=== PATIENT | female | born 1985 | race Caucasian/White ===

== ENCOUNTER 2016-12-29 18:58 | Emergency (ER) | payer OTHER ==
[2016-12-29 19:10] VITALS: BP 123/56; PULSE 76; TEMP 100.1; BMI 28.3
[2016-12-29] MEDS ORDERED: ACETAMINOPHEN 325 MG TABLET (FP) PO ONE (19:36)
--- NOTE | 2016-12-29 19:36 | PDOC ---
History of Present Illness - General Chief Complaint: Sore Throat Stated Complaint: COLD SYMPTOMS Time Seen by Provider: 12/29/16 19:23 History Source: Patient Exam Limitations: Language Barrier (patient's provide vietnamese translation) - History of Present Illness Initial Comments: CHIEF COMPLAINT: 31 y/o febrile female with no significant PMH c/o headache, fever and sore throat today. HISTORY OF PRESENT ILLNESS: The patient states it hurts to swallow. She has 2 kids that had viruses last weekend. She denies earache, runny nose, cough, n/v/ d, CP, SOB, abd pain and all other symptoms. Vital signs on arrival are notable for temp of 100.1. REVIEW OF SYSTEMS: GENERAL/CONSTITUTIONAL: +fever. No weakness. No weight change. HEAD, EYES, EARS, NOSE AND THROAT: No change in vision. No ear pain or discharge. +fever CARDIOVASCULAR: No chest pain or shortness of breath. RESPIRATORY: No cough, wheezing, or hemoptysis. GASTROINTESTINAL: See history of present illness. GENITOURINARY: No dysuria, frequency, or change in urination. MUSCULOSKELETAL: No joint or muscle swelling or pain. No neck or back pain. SKIN: No rash or easy bruising. NEUROLOGIC: +headache. No vertigo, loss of consciousness, or loss of sensation. PHYSICAL EXAM: GENERAL: The patient is awake, alert, and fully oriented, in no acute distress. She is well appearing, ambulatory, in NAD or obvious discomfort. HEAD: Normal with no signs of trauma. NECK: Tender anterior cervical lymphadenopathy. ENT: Pupils equal, round and reactive to light, extraocular movements intact, sclera anicteric, conjunctiva clear. 2+ erythematous tonsils with exudate on b/ l tonsils. Uvula midline. No soft/hard palate deformities. No petechia. LUNGS: Clear to auscultation bilaterally. Normal excursion. No respiratory distress or use of accessory muscles. CV: RRR, S1/S2, no MRG. Cap refill < 2 sec. ABDOMEN: Soft, non-distended, non-tender even to deep palpation, no hepatomegaly or splenomegaly, no masses. EXTREMITIES: Normal range of motion, no edema. NEUROLOGICAL: Normal speech, normal gait. CN II-XII grossly intact. PSYCH: Normal mood, normal affect. SKIN: Warm, dry, normal turgor, no rashes or lesions noted. Past History - Past Medical History Allergies/Adverse Reactions: Allergies Allergy/AdvReac Type Severity Reaction Status Date / Time No Known Allergies Allergy Verified 12/29/16 19:08 Home Medications: Ambulatory Orders Pnv95/Ferrous Fumarate/FA [ Tablet] 1 tab PO DAILY 11/29/12 Acetaminophen [Tylenol .Regular Strength -] 650 mg PO Q4H PRN #0 tablet Ibuprofen [Motrin -] 600 mg PO Q6H PRN #0 tablet 12/16/12 Hyoscyamine Odt [Levsin Odt -] 0.125 mg PO DAILY PRN #7 tab.rapdis 08/29/16 Ondansetron HCl [Zofran] 4 mg PO BID PRN #10 tablet 08/29/16 Asthma: No Cancer: No Cardiac Disorders: No Diabetes: No HTN: No Seizures: No Thyroid Disease: No - Immunization History Immunization Up to Date: Yes - Psycho/Social/Smoking Cessation Hx Anxiety: No Suicidal Ideation: No Smoking Status: No Smoking History: Never smoked Have you smoked in the past 12 months: No Number of Cigarettes Smoked Daily: 0 Information on smoking cessation initiated: No Hx Alcohol Use: No Drug/Substance Use Hx: No Substance Use Type: None Hx Substance Use Treatment: No *Physical Exam - Vital Signs Last Vital Signs Temp Pulse Resp BP Pulse Ox 100.1 F H 76 18 123/56 98 12/29/16 19:08 12/29/16 19:08 12/29/16 19:08 12/29/16 19:08 12/29/16 19:08 Medical Decision Making - Medical Decision Making A/P: 31 y/o female with strep throat based on Centor score. The patient is currently menstruating and denies . Plan is to give PO tylenol and IM Bicillin. Pt tolerated bicillin well. Instructed her to take tylenol for fever/ pain at home, gargle with warm salt water, drink plenty of fluids and rest until symptoms improve. Instructed her to return to the ER with any worsening or concerning symptoms. The patient verbalizes understanding of all instructions, has no further questions and is awaiting discharge. *DC/Admit/Observation/Transfer Diagnosis at time of Disposition: Strep pharyngitis - Discharge Dispostion Disposition: HOME Condition at time of disposition: Good - Referrals Referrals: STAFF,NOT ON [Primary Care Provider] - - Patient Instructions Printed Discharge Instructions: DI for Strep Throat Additional Instructions: Discharge Instructions: -You were given IM Bicillin in the ER for treatment of strep throat; you do not need any more antibiotics -Please take Tylenol or Motrin for fever/pain -Gargle with warm salt water for throat pain -Drink plenty of fluids and get lots of rest -Return to the ER with any worsening or concerning symptoms Print Language: LATVIAN - Post Discharge Activity Work/School Note: Back to Work
[2016-12-29] MEDS ORDERED: PENICILLIN G BENZATHINE 1,200,000 UNIT/2 ML PFS IM ONE (19:41)
[2016-12-29] MEDS ORDERED: PENICILLIN G BENZATHINE 2,400,000 UNIT/4 ML PFS ONE (19:45)
[2016-12-29] MEDS ORDERED: ACETAMINOPHEN 325 MG TABLET (FP) ONE (19:45)
== END 2016-12-29 20:01 | disposition home or self-care (01) ==
LOC: JERFT 18:58
DX: J02.0 Streptococcal pharyngitis (principal); B95.5 Unspecified streptococcus as the cause of diseases classified elsewhere
CPT/HCPCS: 99281-25

== ENCOUNTER 2017-02-06 23:53 | Emergency (ER) | payer OTHER ==
[2017-02-07 00:37] VITALS: BP 110/67; PULSE 81; TEMP 98.3; BMI 24.7
--- NOTE | 2017-02-07 00:54 | PDOC ---
History of Present Illness - History of Present Illness Initial Comments: 02/07/17 01:39 Patient is a 31 year old female with significant medical hx of IUD insertion who is presenting to the ED with two weeks of abdominal pain and nausea. The patient states that her pain began as colicky, intermittent epigastric pain. However for the past two days, her pain has remained constant in the RLQ, with some nausea but no vomiting. The patients pain is non-radiating and she notes that her pain is severely tender to touch. She also endorses fatigue. Denies any fever, chills, vomiting, diarrhea, dysuria, hematuria, frequency, blood in stool, or black/tarry stools. LNMP: 01/2017 Surgical Hx: c-sections x 2 Allergies: NKDA Socail Hx: Denies tobacco, alcohol or illicit drug use. <Lisa Rivera - Last Filed: 02/07/17 01:39> <Mayda Grissom - Last Filed: 02/08/17 01:50> - General Chief Complaint: Pain, Acute Stated Complaint: PAIN, ACUTE Time Seen by Provider: 02/07/17 00:32 Past History <Lisa Rivera - Last Filed: 02/07/17 01:39> - Past Medical History Asthma: No Cancer: No Cardiac Disorders: No Diabetes: No HTN: No Seizures: No Thyroid Disease: No - Immunization History Immunization Up to Date: Yes - Psycho/Social/Smoking Cessation Hx Anxiety: No Suicidal Ideation: No Smoking Status: No Smoking History: Never smoked Have you smoked in the past 12 months: No Number of Cigarettes Smoked Daily: 0 Hx Alcohol Use: No Drug/Substance Use Hx: No Substance Use Type: None Hx Substance Use Treatment: No <Mayda Grissom - Last Filed: 02/08/17 01:50> - Past Medical History Allergies/Adverse Reactions: Allergies Allergy/AdvReac Type Severity Reaction Status Date / Time No Known Allergies Allergy Verified 02/07/17 00:37 Home Medications: Ambulatory Orders NK [No Known Home Medication] 02/07/17 Review of Systems - Review of Systems Comments:: 02/07/17 01:39 CONSTITUTIONAL: Present: fatigue Absent: fever, chills, diaphoresis, loss of appetite HEENT: Absent: rhinorrhea, nasal congestion, throat pain, throat swelling, difficulty swallowing, mouth swelling, ear pain, eye pain, visual changes CARDIOVASCULAR: Absent: chest pain, syncope, palpitations, irregular heart rate, lightheadedness , peripheral edema RESPIRATORY: Absent: cough, shortness of breath, dyspnea with exertion, orthopnea, wheezing, stridor, hemoptysis GASTROINTESTINAL: Present: epigastric and RLQ pain, nausea Absent: abdominal distension, vomiting, diarrhea, constipation, melena, hematochezia GENITOURINARY: Absent: dysuria, frequency, urgency, hesitancy, hematuria, flank pain, genital pain MUSCULOSKELETAL: Absent: myalgia, arthralgia, joint swelling SKIN: Absent: rash, itching, pallor HEMATOLOGIC/IMMUNOLOGIC: Absent: easy bleeding, easy bruising, lymphadenopathy, frequent infections ENDOCRINE: Absent: unexplained weight gain, unexplained weight loss, heat intolerance, cold intolerance NEUROLOGIC: Absent: headache, focal weakness or paresthesia, dizziness, unsteady gait, seizure, mental status changes, bladder or bowel incontinence. PSYCHIATRIC: Absent: anxiety, depression, suicidal or homicidal ideation, hallucinations <Lisa Rivera - Last Filed: 02/07/17 01:39> *Physical Exam - Vital Signs Last Vital Signs Temp Pulse Resp BP Pulse Ox 98.3 F 81 16 110/67 100 02/07/17 00:36 02/07/17 00:36 02/07/17 00:36 02/07/17 00:36 02/07/17 00:36 - Physical Exam Comments: 02/07/17 01:40 GENERAL: Well developed, well nourished. Awake and alert. No acute distress. HEENT: Normocephalic, atraumatic. PERRLA, EOMI. No conjunctival pallor. Sclera are non- icteric. Moist mucous membranes. Oropharynx is clear. NECK: Supple. Full ROM. No JVD. Carotid pulses 2+ and symmetric, without bruits. No thyromegaly. No lymphadenopathy. CARDIOVASCULAR: Regular rate and rhythm. No murmurs, rubs, or gallops. Distal pulses are 2+ and symmetric. PULMONARY: No evidence of respiratory distress. Lungs clear to auscultation bilaterally. No wheezing, rales or rhonchi. ABDOMINAL: Soft. RLQ tenderness with some guarding. Non-distended. No organomegaly. Normoactive bowel sounds. MUSCULOSKELETAL: Normal range of motion at all joints. No bony deformities or tenderness. No CVA tenderness. EXTREMITIES: No cyanosis. No clubbing. No edema. No calf tenderness. SKIN: Warm and dry. Normal capillary refill. No rashes. No jaundice. NEUROLOGICAL: Alert, awake, appropriate. Cranial nerves 2-12 intact. Normal speech. PSYCHIATRIC: Cooperative. Good eye contact. Appropriate mood and affect. <Lisa Rivera - Last Filed: 02/07/17 01:39> - Vital Signs Last Vital Signs Temp Pulse Resp BP Pulse Ox 98.3 F 81 16 110/67 100 02/07/17 00:36 02/07/17 00:36 02/07/17 00:36 02/07/17 00:36 02/07/17 00:36 <Mayda Grissom - Last Filed: 02/08/17 01:50> ED Treatment Course - LABORATORY CBC & Chemistry Diagram: 02/07/17 01:16 02/07/17 01:16 <Lisa Rivera - Last Filed: 02/07/17 01:39> - LABORATORY CBC & Chemistry Diagram: 02/07/17 01:16 02/07/17 01:16 <Mayda Grissom - Last Filed: 02/08/17 01:50> *DC/Admit/Observation/Transfer - Attestations Scribe Attestion: 02/07/17 01:41 Documentation prepared by Lisa Rivera, acting as medical delivery technician for Mayda Grissom MD. <Lisa Rivera - Last Filed: 02/07/17 01:39> <Mayda Grissom - Last Filed: 02/08/17 01:50> Diagnosis at time of Disposition: Abdominal pain - Discharge Dispostion Disposition: HOME Condition at time of disposition: Improved - Patient Instructions Printed Discharge Instructions: DI for Abdominal Pain-Adult Additional Instructions: Your CT scan of the abdomen and pelvis and ultrasound shows fibroids. Please take 600 mg ibuprofen every 6 hours as needed for pain. Please follow up with your doctor. Print Language: GUAMANIAN
[2017-02-07] MEDS ORDERED: ONDANSETRON 4 MG/2 ML VIAL IVPUSH ONE (01:13)
[2017-02-07] MEDS ORDERED: SODIUM CHLORIDE 1,000 ML IV STA (01:13)
[2017-02-07 01:28] LABS: BASOPHIL 0.7 % (0-2.0); EOSINOPHIL 0.8 % (0-4.5); MCH 30.7 pg (25.7-33.7); MCHC 32.4 g/dl (32.0-36.0); MEAN CELL VOLUME 94.9 fl (80-96); MEAN PLT VOLUME 8.8 fl (7.5-11.1); PLATELET COUNT 255 K/MM3 (134-434); RDW 12.9 % (11.6-15.6); WHITE BLOOD COUNT 12.3 K/mm3 (4.0-10.0)
[2017-02-07] MEDS ORDERED: ONDANSETRON 4 MG/2 ML VIAL ONE (01:30)
[2017-02-07 01:49] LABS: ALBUMIN 3.6 g/dl (3.4-5.0); ANION GAP 7 (8-16); BILIRUBIN,TOTAL 0.2 mg/dL (0.2-1.0); CALCIUM 9.6 mg/dL (8.5-10.1); CO2 28 mmol/L (21-32); CREATININE 0.6 mg/dL (0.55-1.02); GLUCOSE,RANDOM 88 mg/dL (74-106); SGOT/AST 17 U/L (15-37); SGPT/ALT 32 U/L (12-78)
[2017-02-07 01:50] LABS: ALK PHOS 56 U/L (45-117)
[2017-02-07 02:11] LABS: URINE APPEARANCE CLEAR; URINE BILIRUBIN NEGATIVE (NEGATIVE); URINE BLOOD NEGATIVE (NEGATIVE); URINE COLOR STRAW; URINE GLUCOSE (UA) NEGATIVE (NEGATIVE); URINE KETONE NEGATIVE (NEGATIVE); URINE NITRITE NEGATIVE (NEGATIVE); URINE PROTEIN NEGATIVE (NEGATIVE); URINE UROBILINOGEN NEGATIVE E.U./dl (0.2-1.0)
[2017-02-07 02:14] LABS: URINE LEUK ESTERASE 1+ (NEGATIVE)
[2017-02-07 02:20] LABS: URINE BACTERIA RARE /hpf (NONE SEEN); URINE MUCUS RARE; URINE RBC <1 /hpf (0-3); URINE WBC 8 /hpf (3-5)
--- NOTE | 2017-02-07 04:13 | PDOC ---
*Physical Exam - Vital Signs Last Vital Signs Temp Pulse Resp BP Pulse Ox 98.3 F 81 16 110/67 100 02/07/17 00:36 02/07/17 00:36 02/07/17 00:36 02/07/17 00:36 02/07/17 00:36 ED Treatment Course - LABORATORY CBC & Chemistry Diagram: 02/07/17 01:16 02/07/17 01:16 - ADDITIONAL ORDERS Additional order review: Laboratory Results 02/07/17 02/07/17 02/07/17 02:03 01:16 01:16 Sodium 141 Potassium 4.3 Chloride 106 Carbon Dioxide 28 Anion Gap 7 L BUN 11 D Creatinine 0.6 Creat Clearance w eGFR > 60 Random Glucose 88 Calcium 9.6 Total Bilirubin 0.2 D AST 17 ALT 32 Alkaline Phosphatase 56 Total Protein 7.0 Albumin 3.6 Lipase 234 Serum , Qual Negative Urine Color Straw Urine Appearance Clear Urine pH 7.0 D Urine Protein Negative Urine Glucose (UA) Negative Urine Ketones Negative Urine Blood Negative Urine Nitrite Negative Urine Bilirubin Negative Urine Urobilinogen Negative Ur Leukocyte Esterase 1+ H Urine RBC <1 Urine WBC 8 Ur Epithelial Cells Few Urine Bacteria Rare Urine Mucus Rare 02/07/17 01:16 RBC 3.93 MCV 94.9 MCHC 32.4 RDW 12.9 MPV 8.8 Neutrophils % 66.0 D Lymphocytes % 24.8 D Monocytes % 7.7 D Eosinophils % 0.8 D Basophils % 0.7 - RADIOLOGY Radiology Studies Ordered: Category Date Time Status ABDOMEN & PELVIS CT WITH CONTR [CT] Stat CT Scan 02/07/17 02:28 Taken - Medications Given in the ED: ED Medications Discontinued Medications Generic Name Dose Route Start Last Admin Trade Name Freq PRN Reason Stop Dose Admin Sodium Chloride 1,000 mls @ 1,000 mls/hr 02/07/17 01:13 02/07/17 01:50 Normal Saline - IV 02/07/17 02:12 1,000 mls/hr ASDIR STA Administration Ondansetron HCl 4 mg 02/07/17 01:13 02/07/17 01:50 Zofran Injection IVPUSH 02/07/17 01:14 4 mg ONCE ONE Administration Medical Decision Making - Medical Decision Making 02/07/17 04:09 Sign-out received from outgoing Emergency Physician Dr. Grissom Pt interviewed and examined Ancillary studies reviewed Case discussed in detail with oncoming Emergency Physician including history, physical exam and ancillary studies. Vital Signs Temp Pulse Resp BP Pulse Ox 98.3 F 81 16 110/67 100 02/07/17 00:36 02/07/17 00:36 02/07/17 00:36 02/07/17 00:36 02/07/17 00:36 CBC, BMP 02/07/17 01:16 02/07/17 01:16 CMP Sodium 141 mmol/L (136-145) 02/07/17 01:16 Potassium 4.3 mmol/L (3.5-5.1) 02/07/17 01:16 Chloride 106 mmol/L (98-107) 02/07/17 01:16 Carbon Dioxide 28 mmol/L (21-32) 02/07/17 01:16 Anion Gap 7 (8-16) L 02/07/17 01:16 BUN 11 mg/dL (7-18) D 02/07/17 01:16 Creatinine 0.6 mg/dL (0.55-1.02) 02/07/17 01:16 Creat Clearance w eGFR > 60 (>60) 02/07/17 01:16 Random Glucose 88 mg/dL (74-106) 02/07/17 01:16 Calcium 9.6 mg/dL (8.5-10.1) 02/07/17 01:16 Total Bilirubin 0.2 mg/dL (0.2-1.0) D 02/07/17 01:16 AST 17 U/L (15-37) 02/07/17 01:16 ALT 32 U/L (12-78) 02/07/17 01:16 Alkaline Phosphatase 56 U/L (45-117) 02/07/17 01:16 Total Protein 7.0 g/dl (6.4-8.2) 02/07/17 01:16 Albumin 3.6 g/dl (3.4-5.0) 02/07/17 01:16 Lipase 234 U/L (73-393) 02/07/17 01:16 Serum , Qual Negative 02/07/17 01:16 Urine Test Results Urine Color Straw 02/07/17 02:03 Urine Appearance Clear 02/07/17 02:03 Urine pH 7.0 (5.0-8.0) D 02/07/17 02:03 Urine Protein Negative (NEGATIVE) 02/07/17 02:03 Urine Glucose (UA) Negative (NEGATIVE) 02/07/17 02:03 Urine Ketones Negative (NEGATIVE) 02/07/17 02:03 Urine Blood Negative (NEGATIVE) 02/07/17 02:03 Urine Nitrite Negative (NEGATIVE) 02/07/17 02:03 Urine Bilirubin Negative (NEGATIVE) 02/07/17 02:03 Ur Leukocyte Esterase 1+ (NEGATIVE) H 02/07/17 02:03 Urine RBC <1 /hpf (0-3) 02/07/17 02:03 Urine WBC 8 /hpf (3-5) 02/07/17 02:03 Ur Epithelial Cells Few /hpf (FEW) 02/07/17 02:03 Urine Bacteria Rare /hpf (NONE SEEN) 02/07/17 02:03 Urine Mucus Rare 02/07/17 02:03 Labs reviewed. Ultrasound and CT imaging. No acute findings. The patient was reassessed and she reports feeling well and would like to go home. Her abdominal pain improved. Pt would like to go home. *DC/Admit/Observation/Transfer Diagnosis at time of Disposition: Abdominal pain Qualifiers: Abdominal location: unspecified location Qualified Code(s): R10.9 - Unspecified abdominal pain - Discharge Dispostion Disposition: HOME Condition at time of disposition: Improved Admit: No - Patient Instructions Printed Discharge Instructions: DI for Abdominal Pain-Adult Additional Instructions: Your CT scan of the abdomen and pelvis and ultrasound shows fibroids. Please take 600 mg ibuprofen every 6 hours as needed for pain. Please follow up with your doctor. Print Language: SERBIAN
== END 2017-02-07 04:26 | disposition home or self-care (01) ==
LOC: JER 23:53
PROC: 3E033GC Introduction of Other Therapeutic Substance into Peripheral Vein, Percutaneous Approach (ICD-10-PCS; principal; 2017-02-06)
DX: R10.9 Unspecified abdominal pain (principal)
CPT/HCPCS: 36415; 74177-TC; 76830-TC; 80053; 81003; 81015; 83690; 84703; 85025; 96374; 99282-25

== ENCOUNTER 2017-03-15 09:36 | Emergency (ER) | payer OTHER ==
[2017-03-15 09:41] VITALS: BP 109/71; PULSE 78; TEMP 98.3; BMI 26.4
--- NOTE | 2017-03-15 10:27 | PDOC ---
History of Present Illness - General Chief Complaint: Pain Stated Complaint: BACK/SIDE PAIN Time Seen by Provider: 03/15/17 10:14 History Source: Patient Exam Limitations: No Limitations - History of Present Illness Initial Comments: 03/15/17 10:26 Patient is a 31-year-old female, history of kidney stones presents emergency department for evaluation of bilateral lower back pain. Patient states that she had similar pain when she had the kidney stones. Patient denies any urinary symptoms, pain started last evening when she was sitting watching a movie. Denies any trauma, denies lifting anything heavy however has a 4 and a 2-year- old. One episode of diarrhea today, no nausea vomiting, no fever. No hematuria, no dysuria. 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 No weakness. No weight change. HEAD, EYES, EARS, NOSE AND THROAT: No change in vision. No ear pain or discharge. No sore throat. CARDIOVASCULAR: No chest pain or shortness of breath. RESPIRATORY: No cough, wheezing, or hemoptysis. GASTROINTESTINAL: No nausea, vomiting, diarrhea or constipation. No rectal bleeding. GENITOURINARY: No dysuria, frequency, or change in urination. MUSCULOSKELETAL: No joint or muscle swelling or pain. No neck pain, lower back pain. SKIN: No rash or easy bruising. NEUROLOGIC: No headache, vertigo, loss of consciousness, or loss of sensation. Physical Exam: GENERAL: The patient is awake, alert, and fully oriented, in no acute distress. HEAD: Normal with no signs of trauma. EYES: Pupils equal, round and reactive to light, extraocular movements intact, sclera anicteric, conjunctiva clear. ENT: Ears normal, nares patent, oropharynx clear without exudates. Moist mucous membranes. No uvula deviation NECK: Normal range of motion, supple without lymphadenopathy, JVD, or masses. LUNGS: Breath sounds equal, clear to auscultation bilaterally. No wheezes, and no crackles. HEART: Regular rate and rhythm, normal S1 and S2 without murmur, rub or gallop. ABDOMEN: Soft, nontender, normoactive bowel sounds. No guarding, no rebound. No masses. No bruising or abrasions MUSCULOSKELETAL: Normal range of motion, no edema. No clubbing or cyanosis. No cords, erythema, or tenderness. No CVA Tenderness with fist palpation. No spinal point tenderness. SKIN: Warm, Dry, normal turgor, no rashes or lesions noted. No rash 03/15/17 10:30 Past History - Past Medical History Allergies/Adverse Reactions: Allergies Allergy/AdvReac Type Severity Reaction Status Date / Time No Known Allergies Allergy Verified 03/15/17 09:40 Home Medications: Ambulatory Orders Cyclobenzaprine HCl [Flexeril 10 mg] 10 mg PO BID PRN #15 tablet 03/15/17 Ibuprofen [Motrin -] 600 mg PO QID #28 tablet 03/15/17 Asthma: No Cancer: No Cardiac Disorders: No Diabetes: No HTN: No Seizures: No Thyroid Disease: No - Immunization History Immunization Up to Date: Yes - Psycho/Social/Smoking Cessation Hx Anxiety: No Suicidal Ideation: No Smoking Status: No Smoking History: Never smoked Have you smoked in the past 12 months: No Number of Cigarettes Smoked Daily: 0 Hx Alcohol Use: Yes (SOCIAL) Drug/Substance Use Hx: No Substance Use Type: None Hx Substance Use Treatment: No *Physical Exam - Vital Signs Last Vital Signs Temp Pulse Resp BP Pulse Ox 98.3 F 78 20 109/71 98 03/15/17 09:36 03/15/17 09:36 03/15/17 09:36 03/15/17 09:36 03/15/17 09:36 Medical Decision Making - Medical Decision Making 03/15/17 10:36 A/P: Patient with nontraumatic bilateral lateral lower back pain. Plan: Urinalysis, urine culture, urine once urine is received we will give Toradol 60 mg IM, rule out kidney stones versus back pain. Versus UTI. 03/15/17 11:57 Laboratory Tests 03/15/17 10:32 Urine Color Straw Urine Appearance Clear Urine pH 7.0 Ur Specific [place] Pending Urine Protein Negative Urine Glucose (UA) Negative Urine Ketones Negative Urine Blood Negative Urine Nitrite Negative Urine Bilirubin Negative Urine Urobilinogen Negative Ur Leukocyte Esterase Negative Urine HCG, Qual Negative Urine is negative for UTI, no blood, no clinical evidence of kidney stone. Patient with low back pain. Toradol given with good result. Patient discharged on Motrin and flexaril. Follow up with ortho as needed if pain persists. I discussed the physical exam findings, ancillary test results and final diagnoses with the patient. I answered all of the patient's questions. The patient was satisfied with the care received and felt comfortable with the discharge plan and treatment plan. The patient will call hours to arrange follow-up and will return to the Emergency Department with any new, persistent or worsening symptoms. *DC/Admit/Observation/Transfer Diagnosis at time of Disposition: Low back pain Qualifiers: Chronicity: acute Back pain laterality: bilateral Sciatica presence: without sciatica Qualified Code(s): M54.5 - Low back pain - Discharge Dispostion Disposition: HOME Condition at time of disposition: Good Admit: No - Prescriptions Prescriptions: Cyclobenzaprine HCl [Flexeril 10 mg] 10 mg PO BID PRN #15 tablet PRN Reason: spasm Ibuprofen [Motrin -] 600 mg PO QID #28 tablet - Referrals Referrals: Jose Alfredo Toribio MD [Staff Physician] - - Patient Instructions Printed Discharge Instructions: Low Back Pain Additional Instructions: 1. Please return to the emergency department with any numbness, tingling, weakness, numbness or tingling to groin or legs, or loss of bowel or bladder function. 2. Use pain medication as ordered. 3. Please is to followup in the office of Dr. Toribio for evaluation within a week if no improvement. 4. Ice or heat 5. Refrain from lifting anything above 10 pounds, until pain resolved. - Post Discharge Activity Work/School Note: Back to Work
[2017-03-15 10:54] LABS: URINE APPEARANCE CLEAR; URINE BILIRUBIN NEGATIVE (NEGATIVE); URINE BLOOD NEGATIVE (NEGATIVE); URINE COLOR STRAW; URINE GLUCOSE (UA) NEGATIVE (NEGATIVE); URINE KETONE NEGATIVE (NEGATIVE); URINE LEUK ESTERASE NEGATIVE (NEGATIVE); URINE NITRITE NEGATIVE (NEGATIVE); URINE PROTEIN NEGATIVE (NEGATIVE); URINE UROBILINOGEN NEGATIVE E.U./dl (0.2-1.0)
[2017-03-15] MEDS ORDERED: KETOROLAC TROMETHAMINE 60 MG/2 ML VIAL IM ONE (11:02)
[2017-03-15] MEDS ORDERED: KETOROLAC TROMETHAMINE 60 MG/2 ML VIAL ONE (11:04)
== END 2017-03-15 11:39 | disposition home or self-care (01) ==
LOC: JERFT 09:36
PROC: 3E0233Z Introduction of Anti-inflammatory into Muscle, Percutaneous Approach (ICD-10-PCS; principal; 2017-03-15)
DX: M54.5 Low back pain (principal)
CPT/HCPCS: 81003; 84703; 87086; 96372; 99281-25

== ENCOUNTER 2018-05-24 10:19 | Emergency (ER) | payer OTHER ==
[2018-05-24 10:24] VITALS: BP 128/64; PULSE 59; TEMP 98.7; BMI 28.3
--- NOTE | 2018-05-24 10:37 | PDOC ---
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 Pt states her patient is HIV positive and was stuck by her insulin syringe , unsure if the syringe was used, however pt is wanting to start the medications. no PMHX tetanus is UTD. Timing: this morning Severity: mild Exposed Location: Right: Finger(s) (thumb) Assessing Significant Risk PEP: Yes Percutaneous Past History - Past Medical History Allergies/Adverse Reactions: Allergies Allergy/AdvReac Type Severity Reaction Status Date / Time No Known Allergies Allergy Verified 05/24/18 10:21 Home Medications: Ambulatory Orders Emtricitabine/Tenofovir (Tdf) [Truvada 200 mg-300 mg Tablet] 1 each PO DAILY # 28 tablet 05/24/18 Raltegravir [Isentress] 400 mg PO BID #46 tab 05/24/18 Asthma: No Cancer: No Cardiac Disorders: No COPD: No Diabetes: No HTN: No Seizures: No Thyroid Disease: No - Immunization History Immunization Up to Date: Yes - Suicide/Smoking/Psychosocial Hx Smoking Status: No Smoking History: Never smoked Have you smoked in the past 12 months: No Number of Cigarettes Smoked Daily: 0 Hx Alcohol Use: Yes (SOCIAL) Drug/Substance Use Hx: No Substance Use Type: None Hx Substance Use Treatment: No Review of Systems - Review of Systems Able to Perform ROS?: Yes Is the patient limited Welsh proficient: No Constitutional: No: Symptoms Reported Integumentary: Yes: Symptoms Reported *Physical Exam - Vital Signs Last Vital Signs Temp Pulse Resp BP Pulse Ox 98.7 F 59 L 16 128/64 100 05/24/18 10:23 05/24/18 10:23 05/24/18 10:23 05/24/18 10:23 05/24/18 10:23 - Physical Exam General Appearance: Yes: Nourished, Appropriately Dressed HEENT: positive: EOMI, NAWAF Neck: positive: Supple Respiratory/Chest: positive: Lungs Clear, Normal Breath Sounds Cardiovascular: positive: Regular Rhythm, Regular Rate Integumentary: positive: Normal Color, Dry, Warm, Other (right thumb tip no evidence of trauma , skin appears intact ) Neurologic: positive: Fully Oriented, Alert, Normal Mood/Affect, Normal Response , Motor Strength 5/5 Post Exposure - ED Protocol - Exposure Treatment Washing/Decontamination: Soap/Water Source Patient HIV Status:: HIV Positive Is PEP indicated?: Yes Prophylaxis for HIV discussed?: Yes Prophylaxis given?: Yes Prophylaxis refused?: No - Referrals Other Post Exposure pt. referral to PCP: Yes (Dr. Haider) *DC/Admit/Observation/Transfer Diagnosis at time of Disposition: Needle stick injury of finger of right hand Qualifiers: Encounter type: initial encounter Qualified Code(s): S61.239A - Puncture wound without foreign body of unspecified finger without damage to nail, initial encounter; W27.3XXA - Contact with needle (sewing), initial encounter - Discharge Dispostion Disposition: HOME Condition at time of disposition: Good - Prescriptions Prescriptions: Emtricitabine/Tenofovir (Tdf) [Truvada 200 mg-300 mg Tablet] 1 each PO DAILY # 28 tablet Raltegravir [Isentress] 400 mg PO BID #46 tab - Referrals Referrals: Shahram Haider MD [Staff Physician] - - Patient Instructions Additional Instructions: follow up with in 2 weeks call today to set up appointment take the medication as directed wash the area of needle stick daily with soap and water seguimiento con en 2 semanas llame hoy para programar horace nivia parth la medicacin segn las indicaciones ced el tmamy de la aguja con agua y jabn diariamente Print Language: POLISH - Post Discharge Activity Forms/Work/School Notes: Back to Work
[2018-05-24 11:09] LABS: EOS % 0.5 % (0-4.5); HEMATOCRIT 40.1 % (32.4-45.2); HEMOGLOBIN 13.6 GM/dL (10.7-15.3); MCH 31.9 pg (25.7-33.7); MEAN CELL VOLUME 93.7 fl (80-96); MEAN PLT VOLUME 8.5 fl (7.5-11.1); MONO % 6.8 % (3.8-10.2); NEUT % 64.7 % (42.8-82.8); PLATELET COUNT 297 K/MM3 (134-434); RBC 4.28 M/mm3 (3.60-5.2); RDW 12.9 % (11.6-15.6)
[2018-05-24 12:19] LABS: ALBUMIN 3.9 g/dl (3.4-5.0); ALK PHOS 48 U/L (45-117); ANION GAP 3 MMOL/L (8-16); BILIRUBIN,TOTAL 0.4 mg/dL (0.2-1); BLOOD UREA NITROGEN 9 mg/dL (7-18); CALCIUM 10.2 mg/dL (8.5-10.1); CHLORIDE 104 mmol/L (98-107); CHOLESTEROL 196 mg/dL (50-200); CO2 28 mmol/L (21-32); CREATININE 0.6 mg/dL (0.55-1.3); GAMMA GLUTAMYL TRANSPEPTIDASE 28 U/L (5-85); GLUCOSE,RANDOM 79 mg/dL (74-106); LDH 180 U/L (84-246); PHOSPHOROUS 2.8 mg/dL (2.5-4.9); POTASSIUM 4.3 mmol/L (3.5-5.1); SGOT/AST 11 U/L (15-37); SGPT/ALT 23 U/L (13-61); SODIUM 136 mmol/L (136-145); TOT PROT 7.7 g/dl (6.4-8.2); TRIGLYCERIDES 108 mg/dL (0-150)
[2018-05-26 00:08] LABS: HBsAG SCREEN Negative (Negative)
== END 2018-05-24 12:48 | disposition home or self-care (01) ==
LOC: JERFT 10:19
DX: S61.239A Puncture wound without foreign body of unspecified finger without damage to nail, initial encounter (principal); W46.0XXA Contact with hypodermic needle, initial encounter; Y93.9 Activity, unspecified; Y92.9 Unspecified place or not applicable
CPT/HCPCS: 36415; 80053; 82465; 82977; 83615; 84100; 84478; 84703; 85025; 86317; 86706; 86803; 87070; 87340; 87389; 87430; 99281-25

== ENCOUNTER 2018-09-17 10:24 | Emergency (ER) | payer OTHER ==
[2018-09-17 11:14] VITALS: BP 114/67; PULSE 85; TEMP 98.5; BMI 24.2
[2018-09-17] MEDS ORDERED: guaiFENesin/D-METHORPHAN HB 10 ML UNIT-DOSE CUPS PO ONE (11:54)
--- NOTE | 2018-09-17 11:56 | PDOC ---
History of Present Illness - General Chief Complaint: Oral Ulcers Stated Complaint: SORE THROAT Time Seen by Provider: 09/17/18 11:26 History Source: Patient Exam Limitations: No Limitations - History of Present Illness Initial Comments: 09/17/18 11:53 32 year old female with no significant medical or surgical history presents with complaints of bodyaches since yesterday. 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 States she feels as if glands are swollen and reports dry intermittent cough x 1 week 09/17/18 11:54 Timing/Duration: 24 hours Severity: mild Modifying Factors: improves with: medication Associated Symptoms: reports: cough, malaise Aspirin Received prior to arrival: Yes: no aspirin today Beta Blair Contraindications(Core Measure): No: Not Prescribed Past History - Travel Traveled outside of the country in the last 30 days: No - Past Medical History Allergies/Adverse Reactions: Allergies Allergy/AdvReac Type Severity Reaction Status Date / Time No Known Allergies Allergy Verified 09/17/18 11:11 Home Medications: Ambulatory Orders Emtricitabine/Tenofovir (Tdf) [Truvada 200 mg-300 mg Tablet] 1 each PO DAILY # 28 tablet 05/24/18 Raltegravir [Isentress] 400 mg PO BID #46 tab 05/24/18 Guaifenesin Dm [Robitussin Dm -] 10 ml PO Q8H #15 cup 09/17/18 Asthma: No Cancer: No Cardiac Disorders: No COPD: No Diabetes: No HTN: No Seizures: No Thyroid Disease: No - Immunization History Immunization Up to Date: Yes - Suicide/Smoking/Psychosocial Hx Smoking Status: No Smoking History: Never smoked Have you smoked in the past 12 months: No Number of Cigarettes Smoked Daily: 0 Hx Alcohol Use: Yes (SOCIAL) Drug/Substance Use Hx: No Substance Use Type: None Hx Substance Use Treatment: No Review of Systems - Review of Systems Able to Perform ROS?: Yes Is the patient limited Armenian proficient: No Constitutional: No: Chills, Fever HEENTM: No: Nose Congestion, Throat Swelling Respiratory: Yes: Cough. No: Shortness of Breath, Productive cough Cardiac (ROS): No: Chest Pain, Lightheadedness, Palpitations ABD/GI: No: Abdominal Distended, Poor Appetite : No: Burning Musculoskeletal: No: Back Pain, Muscle Weakness Integumentary: No: Bruising, Erythema Neurological: No: Headache, Tingling, Tremors *Physical Exam - Vital Signs Last Vital Signs Temp Pulse Resp BP Pulse Ox 98.5 F 85 18 114/67 100 09/17/18 11:11 09/17/18 11:11 09/17/18 11:11 09/17/18 11:11 09/17/18 11:11 - Physical Exam General Appearance: Yes: Nourished, Appropriately Dressed HEENT: positive: EOMI, NAWAF, Pharynx Normal Neck: positive: Supple, Lymphadenopathy (R). negative: Lymphadenopathy (L) Respiratory/Chest: positive: Lungs Clear, Normal Breath Sounds. 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 Plan urine robitussin DM D/c home *DC/Admit/Observation/Transfer Diagnosis at time of Disposition: Malaise, Cough - Discharge Dispostion Disposition: HOME Condition at time of disposition: Good - Prescriptions Prescriptions: Guaifenesin Dm [Robitussin Dm -] 10 ml PO Q8H #15 cup - Referrals Referrals: Madisyn Youssef MD [Primary Care Provider] - - Patient Instructions Printed Discharge Instructions: Cough Additional Instructions: Please rest Drink plenty fluids May take ibuprofen or tylenol for bodyaches or fever follow up with primary physician - Post Discharge Activity Forms/Work/School Notes: Back to Work
[2018-09-17] MEDS ORDERED: guaiFENesin/D-METHORPHAN HB 10 ML UNIT-DOSE CUPS ONE (11:57)
== END 2018-09-17 12:21 | disposition home or self-care (01) ==
LOC: JERFT 10:24
DX: R05 Cough (principal)
CPT/HCPCS: 84703; 99281-25

== ENCOUNTER 2018-10-06 11:34 | Emergency (ER) | payer OTHER ==
[2018-10-06 11:39] VITALS: BP 105/51; PULSE 85; TEMP 98.5; BMI 23.3
--- NOTE | 2018-10-06 12:01 | PDOC ---
History of Present Illness - General Chief Complaint: Urinary Problem Stated Complaint: PAIN Time Seen by Provider: 10/06/18 11:47 History Source: Patient Exam Limitations: Language Barrier Past History - Past Medical History Allergies/Adverse Reactions: Allergies Allergy/AdvReac Type Severity Reaction Status Date / Time No Known Allergies Allergy Verified 10/06/18 11:51 Home Medications: Ambulatory Orders Cephalexin Monohydrate [Keflex -] 500 mg PO BID #14 capsule 10/06/18 Asthma: No Cancer: No Cardiac Disorders: No COPD: No Diabetes: No HTN: No Seizures: No Thyroid Disease: No - Immunization History Immunization Up to Date: Yes - Suicide/Smoking/Psychosocial Hx Smoking Status: No Smoking History: Never smoked Have you smoked in the past 12 months: No Number of Cigarettes Smoked Daily: 0 Hx Alcohol Use: Yes (SOCIAL) Drug/Substance Use Hx: No Substance Use Type: None Hx Substance Use Treatment: No *Physical Exam - Vital Signs Last Vital Signs Temp Pulse Resp BP Pulse Ox 98.5 F 85 18 105/51 L 100 10/06/18 11:34 10/06/18 11:34 10/06/18 11:34 10/06/18 11:34 10/06/18 11:34 - Physical Exam General Appearance: No: Apparent Distress Respiratory/Chest: positive: Lungs Clear, Normal Breath Sounds. negative: Respiratory Distress Cardiovascular: positive: Regular Rhythm, Regular Rate, S1, S2. negative: Murmur Gastrointestinal/Abdominal: positive: Normal Bowel Sounds, Tender (mild suprapubic tenderness), Soft. negative: Distended, Guarding, Rebound Musculoskeletal: negative: CVA Tenderness Integumentary: positive: Normal Color Neurologic: positive: Alert, Normal Mood/Affect Moderate Sedation - Procedure Monitoring Vital Signs: Procedure Monitoring Vital Signs Temperature 98.5 F 10/06/18 11:34 Pulse Rate 85 10/06/18 11:34 Respiratory Rate 18 10/06/18 11:34 Blood Pressure 105/51 L 10/06/18 11:34 O2 Sat by Pulse Oximetry (%) 100 10/06/18 11:34 Medical Decision Making - Medical Decision Making 32 y/o F with no sig pmh presents with dysuria since 5 days ago, along with increased urinary frequency and urgency. Also has been noting strong odor to her urine. Denies fever, chills, sob, cp, abd pain, n/v, hematuria, unusual vaginal discharge Likely UTI UA, UCx, UCG 10/06/18 11:57 UA with 3+ leuks and significant pyuria Will start on Keflex 10/06/18 12:36 *DC/Admit/Observation/Transfer Diagnosis at time of Disposition: UTI (urinary tract infection) Qualifiers: Urinary tract infection type: acute cystitis Hematuria presence: without hematuria Qualified Code(s): N30.00 - Acute cystitis without hematuria - Discharge Dispostion Disposition: HOME Condition at time of disposition: Stable Decision to Admit order: No - Prescriptions Prescriptions: Cephalexin Monohydrate [Keflex -] 500 mg PO BID #14 capsule - Referrals Referrals: ON STAFF,NOT [Primary Care Provider] - - Patient Instructions Printed Discharge Instructions: DI for Urinary Tract Infection (UTI) Additional Instructions: Thank you for choosing [facility]. It was a pleasure taking care of you. You were found to have urine infection Take the prescribed antibiotic as indicated Be sure to drink plenty of water - at least 2 liters a day Follow-up with your doctor in 1 week. Return to the Emergency Department if your symptoms worsen or persist or other concerning symptoms. Curtis por elegir el [facility]. Fue un placer cuidar de ti. Se le detect horace infeccin de orina. Noé el antibitico prescrito jaden se indica. Asegrese de beber agnes agua, al menos 2 litros por da. Seguimiento con mullins mdico en 1 semana. Regrese al Departamento de Emergencias si hawa sntomas empeoran o persisten u otros sntomas relacionados. Print Language: ROMANIAN - Post Discharge Activity
[2018-10-06 12:04] LABS: HCG,QUALITATIVE URINE Negative; URINE APPEARANCE CLOUDY; URINE BILIRUBIN NEGATIVE (<2.0 mg/dL); URINE COLOR YELLOW; URINE GLUCOSE (UA) NEGATIVE (NEGATIVE); URINE KETONE NEGATIVE (NEGATIVE); URINE LEUK ESTERASE 3+ (NEGATIVE); URINE NITRITE NEGATIVE (NEGATIVE); URINE PROTEIN 1+ (NEGATIVE); URINE UROBILINOGEN NEGATIVE mg/dL (0.2-1.0)
[2018-10-06 12:26] LABS: EPI CELLS MODERATE /HPF (FEW); URINE BACTERIA RARE /hpf (NONE SEEN); URINE MUCUS RARE
[2018-10-06] MEDS ORDERED: CEPHALEXIN MONOHYDRATE 500 MG CAPSULE (UD) PO ONE (12:34)
[2018-10-06] MEDS ORDERED: CEPHALEXIN MONOHYDRATE 500 MG CAPSULE (UD) ONE (12:38)
== END 2018-10-06 12:41 | disposition home or self-care (01) ==
LOC: JER 11:34 → JERFT 11:34
DX: N30.00 Acute cystitis without hematuria (principal); B96.4 Proteus (mirabilis) (morganii) as the cause of diseases classified elsewhere
CPT/HCPCS: 81003; 81015; 84703; 87086; 87186; 99281-25

== ENCOUNTER 2019-01-02 16:42 | Emergency (ER) | payer OTHER ==
[2019-01-02 16:49] VITALS: TEMP 98.4; BMI 56.7
--- NOTE | 2019-01-02 16:52 | PDOC ---
Rapid Medical Evaluation Chief Complaint: Chest Pain Time Seen by Provider: 01/02/19 16:45 Medical Evaluation: Allergies Allergy/AdvReac Type Severity Reaction Status Date / Time No Known Allergies Allergy Verified 01/02/19 16:45 Vital Signs Temp Pulse Resp BP Pulse Ox 98.4 F 77 18 104/55 L 97 01/02/19 16:46 01/02/19 16:46 01/02/19 16:46 01/02/19 16:46 01/02/19 16:46 01/02/19 16:51 I have performed a brief in-person evaluation of this patient. The patient presents with a chief complaint of: Tested + on home preg last week , ~6 weeks by dates, here w/ CP and GALVAN Pertinent physical exam findings:Stable and in NAD I have ordered the following:EKG, UA/US The patient will proceed to the ED for further evaluation 01/02/19 16:53 Discharge Disposition - Diagnosis Chest pain Qualifiers: Chest pain type: unspecified Qualified Code(s): R07.9 - Chest pain, unspecified - Referrals - Patient Instructions - Post Discharge Activity
--- NOTE | 2019-01-02 18:18 | PDOC ---
History of Present Illness - General Chief Complaint: Chest Pain Stated Complaint: HEADACE/CHEST PAIN/ Time Seen by Provider: 01/02/19 16:45 History Source: Patient Exam Limitations: No Limitations - History of Present Illness Initial Comments: Pt is a 33 yo F, with no significant PMH, (2 prior C-sections) @6 weeks by dates, who is presenting with complaints of sub-sternal chest pain associated with SOB and palpitations. 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 The pt states the pain was in the middle of her chest, lasted for a few seconds, and improved on its own. She felt her heart racing during this time. She has had this issue over the past few weeks, with additional SOB as she is walking up stairs. Pt denies any estrogen use, recent travel, or surgery. Pt denies any fevers/chills, headache, vision changes, syncope, nausea/vomiting, abdominal pain, urinary symptoms, diarrhea/ constipation, or leg swelling. , no prior issues with pregnancies. LMP November 21 (~6 weeks by dates). Social: Pt denies any cigarette, alcohol, or drug use. Pt denies any recent travel or sick contacts. Surgical: no relevant history. Family: no relevant history. 01/02/19 20:49 Past History - Travel Traveled outside of the country in the last 30 days: No Close contact w/someone who was outside of country & ill: No - Past Medical History Allergies/Adverse Reactions: Allergies Allergy/AdvReac Type Severity Reaction Status Date / Time No Known Allergies Allergy Verified 01/02/19 16:45 Home Medications: Ambulatory Orders Cephalexin Monohydrate [Keflex -] 500 mg PO BID #14 capsule 10/06/18 Asthma: No Cancer: No Cardiac Disorders: No COPD: No Diabetes: No HTN: No Seizures: No Thyroid Disease: No - Immunization History Immunization Up to Date: Yes - Suicide/Smoking/Psychosocial Hx Smoking Status: No Smoking History: Never smoked Have you smoked in the past 12 months: No Number of Cigarettes Smoked Daily: 0 Hx Alcohol Use: No Drug/Substance Use Hx: No Substance Use Type: None Hx Substance Use Treatment: No Review of Systems - Review of Systems Able to Perform ROS?: Yes Is the patient limited Libyan proficient: No Constitutional: Yes: Weight Stable. No: Chills, Diaphoresis, Fever, Loss of Appetite, Malaise, Weakness HEENTM: No: Blurred Vision, Double Vision, Nose Congestion, Throat Pain, Throat Swelling Respiratory: Yes: Shortness of Breath, SOB with Exertion. No: Cough, Orthopnea , SOB at Rest, Wheezing, Productive cough Cardiac (ROS): Yes: Chest Pain, Palpitations. No: Edema, Irregular Heart Rate, Lightheadedness, Syncope, Chest Tightness ABD/GI: No: Constipated, Diarrhea, Nausea, Poor Appetite, Poor Fluid Intake, Vomiting : No: Burning, Dysuria, Pain, Urgency Musculoskeletal: No: Back Pain, Joint Pain, Muscle Pain, Muscle Weakness Integumentary: No: Rash, Sweating Neurological: No: Headache, Numbness, Paresthesia, Weakness, Unsteady Gait, Ataxia, Dizziness Psychiatric: No: Sleep Pattern Change, Change in Appetite Endocrine: No: Increased Urine, Change in Weight Hematologic/Lymphatic: No: Anemia, Blood Clots, Easy Bleeding, Easy Bruising All Other Systems: Reviewed and Negative *Physical Exam - Vital Signs Last Vital Signs Temp Pulse Resp BP Pulse Ox 98.4 F 77 18 104/55 L 97 01/02/19 16:46 01/02/19 16:46 01/02/19 16:46 01/02/19 16:46 01/02/19 16:46 - Physical Exam Comments: Vitals stable, pt afebrile. Pt in NAD, normal body habitus. Pt alert and oriented x3. 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 No midline spinal tenderness, step-offs, or crepitus. Head normocephalic, atraumatic. Eyes PERRLA, EOMI. Oropharynx without erythema or exudates, no LAD b/l. No nasal congestion, hearing intact. Clear heart sounds, S1/S2, no JVD, b/l pedal edema, or heart murmur. Clear lung sounds, no respiratory distress, wheezes, crackles, or accessory muscle use. No abdominal or CVA tenderness to palpation, no rebound, no guarding. Abdomen soft, non-distended, and with normoactive bowel sounds. Fundal height appropriate for gestational age. Skin without jaundice or rash. 01/02/19 20:51 01/02/19 21:22 Vital Signs - Vital Signs #1 Blood Pressure: 114/65 MAP: 81 BP Location: Right Arm Blood Pressure Position: Sitting Pulse Rate: 72 Respiratory Rate: 14 Heart Score/ECG Review - History History: Slightly suspicious - Electrocardiogram EKG: Normal - Age Age: </= 45 - Risk Factors Based on the list above the patient has:: No risk factors known - Troponin Troponin: </= normal limit - Score Heart Score - Total: 0 ED Treatment Course - LABORATORY CBC & Chemistry Diagram: 01/02/19 17:57 01/02/19 17:57 Medical Decision Making - Medical Decision Making Pt was seen at bedside, also will be seen by attending Dr. Nuno and Dr. Ott. Pt presenting with complaints of sub-sternal chest pain associated with SOB and palpitations. 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 The pt states the pain was in the middle of her chest, lasted for a few seconds, and improved on its own. She felt her heart racing during this time. She has had this issue over the past few weeks, with additional SOB as she is walking up stairs. Pt denies any estrogen use, recent travel, or surgery. Pt denies any fevers/chills, headache, vision changes, syncope, nausea/vomiting, abdominal pain, urinary symptoms, diarrhea/ constipation, or leg swelling. Considering MSK pain vs angina/ACS vs normal physiological changes in (SOB due to new volume) vs cardiomyopathy/new HF due to output vs anemia vs electrolyte imbalances vs psych/anxiety. Pt is low-risk for PE, but we cannot PERC because pt is hypercoagulable due to . Ordered work-up including CBC, CMP, troponin, BNP, ECG, UA, urine culture, and D -dimer. Will continue to reassess pt and monitor for symptomatic improvement. ECG: NSR with sinus arrhythmia (present on prior ECG), intervals WNL (HR 72, OH 142, QRS 94, QTc 416). No TWIs or significant ST segment changes. No significant changes from prior ECG. Transvaginal US-- Impression: Single viable intrauterine gestation at approximately 6 weeks 0 days. Several uterine foci are noted most suggestive of leiomyomas. 2.5 cm right ovarian cyst. 01/02/19 20:16 beta-hcg 34,628 CBC: mildly elevated WBC @11 Trop .02 D-dimer 245 UA showed +LE and +WBC -- providing 500 mg PO keflex, will send additional to pts pharmacy. Called laboratory about CMP; problem with the machine -- will be an additional 30 mins. Pending CMP before discharge. 01/02/19 20:17 01/02/19 20:31 CMP and BNP WNL. Considering normal lab results and imaging, pt can be discharged to home with follow-up. Pt advised to follow-up with PCP in 1-2 days and has been referred to OB. Strict return precautions provided with pt understanding. 01/02/19 21:21 *DC/Admit/Observation/Transfer Diagnosis at time of Disposition: Chest pain Qualifiers: Chest pain type: unspecified Qualified Code(s): R07.9 - Chest pain, unspecified Qualifiers: Weeks of gestation: less than 8 weeks Qualified Code(s): Z3A.01 - Less than 8 weeks gestation of - Discharge Dispostion Disposition: HOME Condition at time of disposition: Good Decision to Admit order: No - Referrals Referrals: Madisyn Youssef MD [Primary Care Provider] - Arlyn Schroeder MD [Staff Physician] - Aramis Tirado MD [Staff Physician] - - Patient Instructions Printed Discharge Instructions: DI for Atypical Chest Pain Additional Instructions: You were seen in the ER today for SOB and . The results of your labs and imaging today were normal. Please follow-up with your primary care doctor and OB doctor within 1-2 days to discuss your visit and make sure your symptoms have improved. Please return to the ER if you have any worsening pain, development of fevers or chills, loss of consciousness, inability to tolerate food or fluids, or any other concerns. - Post Discharge Activity
[2019-01-02 18:20] VITALS: BP 114/65; PULSE 72
[2019-01-02 18:23] LABS: BASO % 0.8 % (0-2.0); EOS % 0.5 % (0-4.5); HEMATOCRIT 37.4 % (32.4-45.2); HEMOGLOBIN 12.7 GM/dL (10.7-15.3); LYMPH % 24.9 % (8-40); MCH 31.8 pg (25.7-33.7); MCHC 33.9 g/dl (32.0-36.0); MEAN CELL VOLUME 93.8 fl (80-96); MEAN PLT VOLUME 8.8 fl (7.5-11.1); MONO % 7.9 % (3.8-10.2); NEUT % 65.9 % (42.8-82.8); PLATELET COUNT 273 K/MM3 (134-434); RBC 3.98 M/mm3 (3.60-5.2); RDW 13.1 % (11.6-15.6); WHITE BLOOD COUNT 11.3 K/mm3 (4.0-10.0)
[2019-01-02 18:29] LABS: EPI CELLS 2.1 /HPF (0-5/HPF); PH,URINE 6.5 (5.0-8.0); URINE APPEARANCE CLEAR; URINE BACTERIA 86.7 /hpf (NEGATIVE); URINE BILIRUBIN NEGATIVE (NEGATIVE); URINE CASTS 1 /lpf (0-8); URINE COLOR YELLOW; URINE GLUCOSE (UA) NEGATIVE (NEGATIVE); URINE KETONE NEGATIVE (NEGATIVE); URINE LEUK ESTERASE TRACE (NEGATIVE); URINE NITRITE NEGATIVE (NEGATIVE); URINE PROTEIN NEGATIVE (NEGATIVE); URINE RBC 1 /hpf (0-4); URINE WBC 5 /hpf (0-5)
--- NOTE | 2019-01-02 18:51 | PDOC ---
Documentation entered by Sera Baez SCRIBE, acting as scribe for Naheed Nuno MD. Naheed Nuno MD: This documentation has been prepared by the Sasha head Sammi, SCRIBE, under my direction and personally reviewed by me in its entirety. I confirm that the documentation accurately reflects all work, treatment, procedures, and medical decision making performed by me. Attending Attestation - Resident Resident Name: ArnoldJeanie - ED Attending Attestation I have performed the following: I have examined & evaluated the patient, The case was reviewed & discussed with the resident, I agree w/resident's findings & plan, Exceptions are as noted - HPI HPI: 01/02/19 18:04 The patient is a 33 year old female, , with no significant PMH, who presents to the emergency department for evaluation of new onset SOB and palpitations. The patient states she has been experiencing SOB upon walking up stairs. She also notes substernal chest pain and describes palpitations. Patient denies recent travel or surgeries. The patient denies headache and dizziness. Denies fever, chills, nausea, vomit, diarrhea and constipation. Denies dysuria, frequency, urgency and hematuria. Allergies: NKA PCP: Dr. Madisyn Youssef - Physicial Exam PE: 01/02/19 18:47 GENERAL: The patient is in no acute distress. ENT: Ears normal, nares patent, oropharynx clear without exudates. Moist mucous membranes. NECK: Normal range of motion, supple LUNGS: Breath sounds equal, clear to auscultation bilaterally. No wheezes, and no crackles. HEART:Regular rate and rhythm, normal S1 and S2 without murmur, rub or gallop. ABDOMEN: Soft, nontender, normoactive bowel sounds. EXTREMITIES: Normal range of motion NEUROLOGICAL: Cranial nerves II through XII grossly intact. Normal speech. No focal neurological deficits. SKIN: Warm, Dry, normal turgor, no rashes or lesions noted. - Medical Decision Making 01/02/19 18:47 33 yo F approximately 6 weeks presenting with chest pain which has been intermittent She had chest pain on Monday, Monday, and Today Pain lasts 20 minutes No pain now No new shortness of breath Will do: Labs including D dimer Will do TV US Will re assess Signed out to Dr Ott
[2019-01-02 20:19] LABS: ALBUMIN 3.5 g/dl (3.4-5.0); CREATININE 0.6 mg/dL (0.55-1.3)
[2019-01-02] MEDS ORDERED: CEPHALEXIN MONOHYDRATE 500 MG CAPSULE (UD) PO ONE (20:30)
[2019-01-02] MEDS ORDERED: CEPHALEXIN MONOHYDRATE 500 MG CAPSULE (UD) ONE (20:32)
[2019-01-02 21:00] LABS: ALK PHOS 42 U/L (45-117); ANION GAP 9 MMOL/L (8-16); BILIRUBIN,TOTAL 0.2 mg/dL (0.2-1); BLOOD UREA NITROGEN 14 mg/dL (7-18); CALCIUM 9.9 mg/dL (8.5-10.1); CHLORIDE 107 mmol/L (98-107); CO2 22 mmol/L (21-32); GLUCOSE,RANDOM 86 mg/dL (74-106); N-TERMINAL BNP 41.7 pg/ml (5-125); POTASSIUM 3.9 mmol/L (3.5-5.1); SGOT/AST 12 U/L (15-37); SGPT/ALT 28 U/L (13-61); SODIUM 138 mmol/L (136-145); TOT PROT 6.7 g/dl (6.4-8.2)
--- NOTE | 2019-01-03 13:39 | EKG ---
Test Reason : Blood Pressure : / mmHG Vent. Rate : 072 BPM Atrial Rate : 072 BPM P-R Int : 142 ms QRS Dur : 094 ms QT Int : 380 ms P-R-T Axes : 029 048 045 degrees QTc Int : 416 ms NORMAL SINUS RHYTHM WITH SINUS ARRHYTHMIA NORMAL ECG WHEN COMPARED WITH ECG OF 24-APR-2018 21:55, NO SIGNIFICANT CHANGE WAS FOUND Confirmed by MARCO ANTONIO PINO MD ([id number]) on 01/03/2019 1:38:53 PM Referred By: Confirmed By:MARCO ANTONIO PINO MD
== END 2019-01-02 21:16 | disposition home or self-care (01) ==
LOC: JER 16:42
DX: O26.891 Other specified pregnancy related conditions, first trimester (principal); Z3A.01 Less than 8 weeks gestation of pregnancy
CPT/HCPCS: 36415; 76817-TC; 80053; 81003; 83880; 84484; 84702; 85025; 85379; 87086; 93005; 93010; 99283-25

== ENCOUNTER 2019-03-22 11:32 | Emergency (ER) | payer OTHER ==
[2019-03-22 11:47] VITALS: BP 108/58; PULSE 77; TEMP 98.3; BMI 27.4
[2019-03-22] MEDS ORDERED: ACETAMINOPHEN 500 MG TABLET (FP) PO ONE (12:25)
[2019-03-22] MEDS ORDERED: SODIUM CHLORIDE 1,000 ML IV STA (12:26)
--- NOTE | 2019-03-22 12:36 | PDOC ---
History of Present Illness - General Chief Complaint: Chest Pain Stated Complaint: 17 WEEKS PREGANT/CHEST PAIN/ HEADACHE Time Seen by Provider: 03/22/19 12:22 History Source: Patient Exam Limitations: No Limitations - History of Present Illness Initial Comments: 03/22/19 12:27 33-year-old female currently 17 weeks presents to ED with frontal throbbing pressure for the past 2 days and mentioning lower extremity swelling for the past 3 weeks relieved with elevation. Patient also states pain to bilateral chest wall worsened with movement which she developed 2 days ago after cleaning her house patient denies shortness of breath, fever, chills, palpitations, dizziness, visual changes, urinary complaints, abdominal pain, or back pain. Timing/Duration: changing over time Severity: moderate Past History - Travel Traveled outside of the country in the last 30 days: No Close contact w/someone who was outside of country & ill: No - Past Medical History Allergies/Adverse Reactions: Allergies Allergy/AdvReac Type Severity Reaction Status Date / Time No Known Allergies Allergy Verified 03/22/19 11:40 Home Medications: Ambulatory Orders Cephalexin Monohydrate [Keflex -] 500 mg PO BID #14 capsule 10/06/18 Asthma: No Cancer: No Cardiac Disorders: No COPD: No Diabetes: No HTN: No Seizures: No Thyroid Disease: No - Immunization History Immunization Up to Date: Yes - Suicide/Smoking/Psychosocial Hx Smoking Status: No Smoking History: Never smoked Have you smoked in the past 12 months: No Number of Cigarettes Smoked Daily: 0 Hx Alcohol Use: No Drug/Substance Use Hx: No Substance Use Type: None Hx Substance Use Treatment: No Patient Lives Alone: No Lives with/in: spouse/SO Review of Systems - Review of Systems Able to Perform ROS?: No Is the patient limited Indonesian proficient: No Constitutional: No: Symptoms Reported HEENTM: No: Symptoms Reported Respiratory: No: Symptoms reported Cardiac (ROS): Yes: Edema ABD/GI: Yes: Poor Fluid Intake. No: Constipated, Diarrhea : No: Symptoms Reported Musculoskeletal: Yes: Symptoms Reported Integumentary: No: Symptoms Reported Neurological: No: Symptoms reported Endocrine: No: Symptoms Reported Hematologic/Lymphatic: No: Symptoms Reported *Physical Exam - Vital Signs Last Vital Signs Temp Pulse Resp BP Pulse Ox 98.3 F 77 18 108/58 L 99 03/22/19 11:42 03/22/19 11:42 03/22/19 11:42 03/22/19 11:42 03/22/19 11:42 - Physical Exam General Appearance: Yes: Nourished, Appropriately Dressed. No: Apparent Distress HEENT: positive: EOMI, NAWAF, Pharynx Normal. negative: Pale Conjunctivae Neck: positive: Normal Thyroid Respiratory/Chest: positive: Chest Tender (upper mid sternum), Lungs Clear, Normal Breath Sounds. negative: Respiratory Distress, Accessory Muscle Use Cardiovascular: positive: Regular Rhythm, Regular Rate. negative: Murmur Gastrointestinal/Abdominal: positive: Normal Bowel Sounds, Soft. negative: Tenderness Musculoskeletal: negative: CVA Tenderness Extremity: positive: Pedal Edema (2 + nonpitting) Integumentary: positive: Normal Color, Warm, Moist Neurologic: positive: Normal Mood/Affect, Motor Strength 5/5 (ambulatory) ED Treatment Course - LABORATORY CBC & Chemistry Diagram: 03/22/19 13:54 03/22/19 13:54 Medical Decision Making - Medical Decision Making 03/22/19 12:30 If complaint: Frontal throbbing headache upper chest soreness, and lower extremity swelling 17 weeks other complaints. Exam: Patient with normal vital signs. 2+ nonpitting pedal edema reproducible upper sternal chest pain Plan: labs, urine, EKG and Tylenol ordered 03/22/19 15:04 Laboratory Tests 03/22/19 03/22/19 03/22/19 13:54 13:54 14:00 WBC 11.5 H Hgb 13.2 Hct 39.0 Absolute Neuts (auto) 8.4 H Sodium 138 Potassium 3.9 Chloride 104 Carbon Dioxide 27 Anion Gap 6 L BUN 7.0 Creatinine 0.5 L Random Glucose 84 Calcium 9.8 Total Bilirubin 0.3 AST 32 ALT 66 H Alkaline Phosphatase 56 Albumin 3.1 L Urine Ketones Negative Urine Nitrite Negative Ur Leukocyte Esterase 1+ H Urine WBC (Auto) 5 Urine RBC (Auto) 1 Urine Casts (Auto) 2 U Epithel Cells (Auto) 2.7 Urine Bacteria (Auto) 105.8 She states feeling better. Patient tolerated lunch. Urine culture was sent. Will not treat for UTI at this time since patient has no urinary complaints. Patient has an appointment for an ultrasound on the . *DC/Admit/Observation/Transfer Diagnosis at time of Disposition: Headache - Discharge Dispostion Disposition: HOME Condition at time of disposition: Improved - Referrals - Patient Instructions Printed Discharge Instructions: DI for Headache, DI for -- Discomforts and Remedies Additional Instructions: I recommend taking Tylenol for headache Drink plenty of fluids and eat small frequent meals. Please follow-up with your SHIPWRIGHT SUPERVISOR as scheduled on the 24th - Post Discharge Activity
[2019-03-22 14:15] LABS: BASO % 0.8 % (0-2.0); HEMOGLOBIN 13.2 GM/dL (10.7-15.3); LYMPH % 17.9 % (8-40); MCH 31.6 pg (25.7-33.7); MCHC 33.9 g/dl (32.0-36.0); MEAN CELL VOLUME 93.1 fl (80-96); MEAN PLT VOLUME 9.2 fl (7.5-11.1); MONO % 7.2 % (3.8-10.2); NEUT % 73.1 % (42.8-82.8); PLATELET COUNT 260 K/MM3 (134-434); RBC 4.19 M/mm3 (3.60-5.2); WHITE BLOOD COUNT 11.5 K/mm3 (4.0-10.0)
[2019-03-22 14:16] LABS: EPI CELLS 2.7 /HPF (0-5/HPF); HYALINE CASTS 2 /lpf (0-8); URINE APPEARANCE CLEAR; URINE BACTERIA 105.8 /hpf (NEGATIVE); URINE BILIRUBIN NEGATIVE (NEGATIVE); URINE COLOR YELLOW; URINE GLUCOSE (UA) NEGATIVE (NEGATIVE); URINE KETONE NEGATIVE (NEGATIVE); URINE LEUK ESTERASE 1+ (NEGATIVE); URINE NITRITE NEGATIVE (NEGATIVE); URINE PROTEIN NEGATIVE (NEGATIVE); URINE RBC 1 /hpf (0-4); URINE UROBILINOGEN 0.2 mg/dL (0.2-1.0); URINE WBC 5 /hpf (0-5)
[2019-03-22 14:42] LABS: ALBUMIN 3.1 g/dl (3.4-5.0); BILIRUBIN,TOTAL 0.3 mg/dL (0.2-1); CALCIUM 9.8 mg/dL (8.5-10.1); CREATININE 0.5 mg/dL (0.55-1.3); POTASSIUM 3.9 mmol/L (3.5-5.1); TOT PROT 6.8 g/dl (6.4-8.2)
[2019-03-22] MEDS ORDERED: ACETAMINOPHEN 325 MG TABLET (FP) ONE (15:03)
--- NOTE | 2019-03-24 00:16 | EKG ---
Test Reason : Blood Pressure : / mmHG Vent. Rate : 084 BPM Atrial Rate : 084 BPM P-R Int : 146 ms QRS Dur : 094 ms QT Int : 356 ms P-R-T Axes : 039 046 023 degrees QTc Int : 420 ms NORMAL SINUS RHYTHM POSSIBLE LEFT ATRIAL ENLARGEMENT BORDERLINE ECG WHEN COMPARED WITH ECG OF 02-JAN-2019 16:42, NO SIGNIFICANT CHANGE WAS FOUND Confirmed by RHONDA CARRENO MD ([id number]) on 03/24/2019 12:16:04 AM Referred By: Confirmed By:RHONDA CARRENO MD
== END 2019-03-22 16:00 | disposition home or self-care (01) ==
LOC: JER 11:32
PROC: 3E0337Z Introduction of Electrolytic and Water Balance Substance into Peripheral Vein, Percutaneous Approach (ICD-10-PCS; principal; 2019-03-22)
DX: O26.892 Other specified pregnancy related conditions, second trimester (principal); R51 Headache; O12.02 Gestational edema, second trimester; Z3A.17 17 weeks gestation of pregnancy
CPT/HCPCS: 36415; 80053; 81003; 85025; 87077; 87086; 93005; 93010; 96360; 99282-25; J7030

== ENCOUNTER 2019-08-07 11:30 | Inpatient (IN) | payer OTHER ==
[2019-08-07] MEDS ORDERED: ELECTROLYTE-148 SOLN 1,000 ML IV SCH ×3 (12:30→17:45)
[2019-08-07] MEDS ORDERED: ACETAMINOPHEN INJECTION 100 ML IVPB ONE (13:28)
[2019-08-07] MEDS ORDERED: ACETAMINOPHEN 1000 MG/100 ML VIAL (NON FORMULARY) IVPB STA (13:30)
[2019-08-07] MEDS ORDERED: AMPICILLIN SODIUM 2 GM VIAL IVPB STA (14:05)
[2019-08-07] MEDS ORDERED: AMPICILLIN SODIUM 2 GM VIAL ONE (14:17)
[2019-08-07] MEDS ORDERED: CITRIC ACID/SODIUM CITRATE 30 ML UNIT-DOSE CUP PO ONE ×2 (14:30→17:32)
[2019-08-07 14:53] VITALS: BMI 34.2
[2019-08-07 15:17] LABS: BASO % 0.5 % (0-2.0); EOS % 0.4 % (0-4.5); HEMATOCRIT 38.7 % (32.4-45.2); HEMOGLOBIN 13.2 GM/dL (10.7-15.3); LYMPH % 17.3 % (8-40); MCH 31.4 pg (25.7-33.7); MCHC 34.2 g/dl (32.0-36.0); MEAN CELL VOLUME 91.9 fl (80-96); MEAN PLT VOLUME 8.8 fl (7.5-11.1); MONO % 5.2 % (3.8-10.2); NEUT % 76.6 % (42.8-82.8); PLATELET COUNT 233 K/MM3 (134-434); RBC 4.21 M/mm3 (3.60-5.2); RDW 13.9 % (11.6-15.6); WHITE BLOOD COUNT 9.5 K/mm3 (4.0-10.0)
[2019-08-07 15:28] LABS: INR 0.93 (0.83-1.09)
[2019-08-07 15:31] LABS: ACTIVATED PTT 28.9 SECONDS (25.2-36.5)
[2019-08-07 15:39] LABS: BLOOD UREA NITROGEN 6.8 mg/dL (7-18); CALCIUM 10.4 mg/dL (8.5-10.1); CREATININE 0.5 mg/dL (0.55-1.3)
[2019-08-07] MEDS ORDERED: OXYTOCIN 20 UNITS in 0.9% NS 20 UNIT/1,000 ML INFUS.BAG IV ONE (17:35)
[2019-08-07] MEDS ORDERED: METHYLERGONOVINE MALEATE 0.2 MG/1 ML AMP IM PRN (17:38)
--- NOTE | 2019-08-07 17:38 | HP ---
Past Medical History - Primary Care Physician PCP:: Amanda Easley - Admission Chief Complaint: Previous Section. Active labor. IUP at 37 weeks History of Present Illness: 33 previous Section X 2 in active labor for repeat cs and desires bilateral salpingectomy History Source: Patient Limitations to Obtaining History: No Limitations - Past Medical History ...: 3 ...Para: 2 ...Term: 1 ...: 0 ...Spon : 0 ...Induced : 0 ...Multiple Gestation: 0 ...LMP: 11/21/18 ... Weeks Gestation by Dates: 37.0 ...EDC by Dates: 08/28/19 ...EDC by Sono: 08/28/19 - Past Surgical History Past Surgical History: Yes: Hx Myomectomy: No Hx Transabdominal Cerclage: No - Smoking History Smoking history: Never smoked Have you smoked in the past 12 months: No Aproximately how many cigarettes per day: 0 - Alcohol/Substance Use Hx Alcohol Use: No History of Substance Use: reports: None Home Medications - Allergies Allergies/Adverse Reactions: Allergies Allergy/AdvReac Type Severity Reaction Status Date / Time No Known Allergies Allergy Verified 08/07/19 12:23 - Home Medications Home Medications: Ambulatory Orders Pnv 29-1 Tablet 1 tab PO DAILY 05/12/19 Ibuprofen [Motrin -] 600 mg PO QID #28 tablet 08/07/19 Review of Systems - Review of Systems Constitutional: reports: No Symptoms Eyes: reports: No Symptoms HENT: reports: No Symptoms Neck: reports: No Symptoms Cardiovascular: reports: No Symptoms Respiratory: reports: No Symptoms Gastrointestinal: reports: No Symptoms Genitourinary: reports: No Symptoms Breasts: reports: No Symptoms Reported Musculoskeletal: reports: No Symptoms Integumentary: reports: No Symptoms Neurological: reports: No Symptoms Endocrine: reports: No Symptoms Hematology/Lymphatic: reports: No Symptoms Psychiatric: reports: No Symptoms Physical Exam - Maternity Vital Signs: Vital Signs Temperature 98.4 F 08/07/19 14:05 Pulse Rate 89 08/07/19 16:00 Respiratory Rate 20 08/07/19 16:00 Blood Pressure 109/70 08/07/19 16:00 O2 Sat by Pulse Oximetry (%) Constitutional: Yes: Well Nourished, No Distress Lungs: Clear to auscultation Breast(s): Yes: WNL - Abdominal Exam/OB Fundal Height: 38 Number of Fetuses: Single Presentation: Vertex Contractions: Yes Heart Rate Location: [facility] Category: I - Vaginal Exam/OB Dilatation (cm): 2 cm Amniotic Membrane Status: Intact Presentation: Vertex/Position - Physical Exam Musculoskeletal: Yes: WNL Extremities: Yes: WNL Edema: No Psychiatric: Yes: WNL, Alert, Oriented - Labs Lab Results: CBC, BMP 08/07/19 15:00 08/07/19 14:07 Hemorrhage Risk Assessment - Risk Factors Medium Risk Factors: Yes: Prior , uterine surgery,or multiple laparotomies Risk Score: 1 Risk Level: Medium Risk Problem List - Problems (1) Previous delivery affecting , antepartum Code(s): O34.219 - MATERNAL CARE FOR UNSP TYPE SCAR FROM PREVIOUS DEL Assessment/Plan Previous section Active labor voluntary sterilization Plan Section BIlateral salpingectomy
[2019-08-07] MEDS ORDERED: PROPOFOL 20 ML ONE (17:43)
[2019-08-07] MEDS ORDERED: morphine SULFATE/PF 0.5 MG/ML (2cc Syringe - QUVA) ONE (17:43)
[2019-08-07] MEDS ORDERED: OXYTOCIN 20 UNITS in 0.9% NS 20 UNIT/1,000 ML INFUS.BAG IV SCH (17:45)
[2019-08-07] MEDS ORDERED: ceFAZolin SODIUM 1 GM VIAL ONE ×3 (18:00→18:03)
--- NOTE | 2019-08-07 18:36 | PN ---
Progress Note (short form) - Note Progress Note: I assisted Dr. Easley at repeat c/s and bilateral salpingectomy for the entirety of the case.
--- NOTE | 2019-08-07 18:53 | OP ---
Operative Note - Note: Operative Date: 08/07/19 Pre-Operative Diagnosis: Previous Section. IUP at 37 weeks. Active labor Operation: Repeat Section Findings: Live female delivered in ot nuchal cord x1 body cord x 1 Post-Operative Diagnosis: Same as Pre-op Surgeon: Amanda Easley Director Foundation: Sonido Pratt Anesthesia: Spinal Estimated Blood Loss (mls): 600 Operative Report Dictated: Yes
[2019-08-08] MEDS: IBUPROFEN 800 MG/8 ML IJ IVPB PRN ×2 (04:33→11:19)
--- NOTE | 2019-08-08 07:12 | OP ---
DATE OF OPERATION: 08/07/2019 PREOPERATIVE DIAGNOSES: 1. Previous section, active labor and intrauterine at 37 weeks. 2. Voluntary sterilization. OPERATION: Repeat section and bilateral salpingectomy. POSTOPERATIVE DIAGNOSES: 1. Previous section, active labor and intrauterine at 37 weeks. 2. Voluntary sterilization. FINDINGS: Live female delivered in OP position. Nuchal cord x1. Body cord x1. SURGEON: Rohini Easley MD ADMINISTRATIVE UNDERWRITER: Sonido Pratt MD ANESTHESIA: Spinal. ESTIMATED BLOOD LOSS: 600 mL. DESCRIPTION OF PROCEDURE: The patient was taken to the operating room, placed in the supine position, prepped and draped in the usual sterile fashion. A time-out was performed in accordance with hospital regulation. A scalpel was then used to make a Pfannenstiel skin incision through the patient's previous scar. Cautery was then used to go through the layers of the abdominal wall to the level of the fascia. The fascia was cut in the midline. Cautery was then used to open the fascia in a smiling fashion. A Sierra was then used to bluntly and sharply dissect the rectus muscle off the fascia. The muscle was splint in the midline. The peritoneal cavity was then entered and carried upward and downward. A bladder retractor was then placed. A scalpel was then used to make a low transverse uterine incision. The incision was carried upwards using bandage scissors. A live female was delivered in OP position. Nose and mouth suction was performed. The shoulders were delivered without difficulty. Nuchal cord x1 and body cord x1 were reduced. The was handed to the design quality engineer. The placenta was manually extracted from the uterus. The uterus was exteriorized and cleaned with clean lap pads. The uterine incision was then closed using 0 Biosyn suture, the first layer continuous interlocking and the second layer imbricating the first layer. Hemostasis was achieved. The tubes were identified and the ovaries noted to be normal. Bilateral Babcocks were used and cautery and cutting of the tubes were then done using LigaSure. Hemostasis was achieved. The uterus was interiorized. The abdominal cavity was cleaned with clean lap pads. The peritoneum was closed using 0 Biosyn suture. The fascia was then closed using 0 Vicryl suture in 2 parts. The skin was then closed using 3-0 Vicryl in subcuticular fashion. The wound was washed and dressed. The patient tolerated the procedure well. Estimated blood loss was 600 mL. ROHINI EASLEY M.D. [id number]
[2019-08-08 08:55] LABS: BASO % 0.3 % (0-2.0); EOS % 0.1 % (0-4.5); HEMATOCRIT 37.4 % (32.4-45.2); HEMOGLOBIN 12.7 GM/dL (10.7-15.3); LYMPH % 9.3 % (8-40); MCHC 33.9 g/dl (32.0-36.0); MEAN CELL VOLUME 91.6 fl (80-96); MEAN PLT VOLUME 9.2 fl (7.5-11.1); MONO % 6.2 % (3.8-10.2); NEUT % 84.1 % (42.8-82.8); PLATELET COUNT 189 K/MM3 (134-434); RBC 4.09 M/mm3 (3.60-5.2); RDW 13.7 % (11.6-15.6); WHITE BLOOD COUNT 13.7 K/mm3 (4.0-10.0)
--- NOTE | 2019-08-08 10:22 | PN ---
Progress Note (short form) - Note Progress Note: Anesthesia Post Op Note Pt s/p spinal for c/section Pt awake alert denies n/v; h/a Ambulating well, henning in situ Pain well controlled VSS no apparent anesthesia complications Bar Rodriguez.
[2019-08-08] MEDS ORDERED: BISACODYL 10 MG SUPP.RECT RC PRN (17:38)
[2019-08-08] MEDS: SIMETHICONE 80 MG TAB.CHEW (FP) PO PRN (22:36)
[2019-08-08] MEDS: IBUPROFEN 600 MG TABLET (FP) PO PRN (22:36)
[2019-08-09] MEDS: IBUPROFEN 600 MG TABLET (FP) PO PRN ×3 (05:15→17:46)
[2019-08-09] MEDS: SIMETHICONE 80 MG TAB.CHEW (FP) PO PRN ×3 (05:25→17:47)
[2019-08-09] MEDS ORDERED: oxyCODONE HCL 5 MG TABLET PO PRN ×2 (06:05)
--- NOTE | 2019-08-09 09:22 | PN ---
Post Progress Note - Subjective Subjective: 33 yo Para 3, status post repeat , seen and evaluated. Doing well Post Day: 2 Type of Delivery: Repeat C/S Vital Signs: Vital Signs Temperature 98.1 F 08/08/19 23:04 Pulse Rate 93 H 08/08/19 23:04 Respiratory Rate 20 08/08/19 23:04 Blood Pressure 116/62 08/08/19 23:04 O2 Sat by Pulse Oximetry (%) 97 08/07/19 22:00 Breast Exam: Yes: Soft Uterus: Yes: Fundus @ umbilicus Incision: Yes: Dressing dry and intact Abdomen/GI: Yes: Abdomen soft, Tolerating PO Lochia: Yes: Rubra Lochia, amount: Small Extremities: Yes: Calves non-tender Activity: Ambulating - Labs Labs: CBC WBC 13.7 K/mm3 (4.0-10.0) H 08/08/19 08:13 RBC 4.09 M/mm3 (3.60-5.2) 08/08/19 08:13 Hgb 12.7 GM/dL (10.7-15.3) 08/08/19 08:13 Hct 37.4 % (32.4-45.2) 08/08/19 08:13 MCV 91.6 fl (80-96) 08/08/19 08:13 MCH 31.0 pg (25.7-33.7) 08/08/19 08:13 MCHC 33.9 g/dl (32.0-36.0) 08/08/19 08:13 RDW 13.7 % (11.6-15.6) 08/08/19 08:13 Plt Count 189 K/MM3 (134-434) 08/08/19 08:13 MPV 9.2 fl (7.5-11.1) 08/08/19 08:13 Absolute Neuts (auto) 11.5 K/mm3 (1.5-8.0) H 08/08/19 08:13 Neutrophils % 84.1 % (42.8-82.8) H 08/08/19 08:13 Lymphocytes % 9.3 % (8-40) D 08/08/19 08:13 Monocytes % 6.2 % (3.8-10.2) 08/08/19 08:13 Eosinophils % 0.1 % (0-4.5) 08/08/19 08:13 Basophils % 0.3 % (0-2.0) 08/08/19 08:13 Nucleated RBC % 0 % (0-0) 08/08/19 08:13 Problem List - Problems (1) Status post repeat low transverse section Problems reviewed: Yes Code(s): Z98.891 - HISTORY OF UTERINE SCAR FROM PREVIOUS SURGERY Assessment/Plan Status post repeat Stable Ambulation analgesia as needed Continue routine post op care
[2019-08-10] MEDS: IBUPROFEN 600 MG TABLET (FP) PO PRN ×3 (01:42→13:16)
[2019-08-10] MEDS: SIMETHICONE 80 MG TAB.CHEW (FP) PO PRN ×3 (01:42→13:17)
--- NOTE | 2019-08-10 06:33 | DS ---
Physical Exam-ANALYST Vital Signs: Vital Signs Temperature 98.1 F 08/09/19 20:29 Pulse Rate 92 H 08/09/19 20:29 Respiratory Rate 20 08/09/19 20:29 Blood Pressure 108/69 08/09/19 20:29 O2 Sat by Pulse Oximetry (%) 97 08/07/19 22:00 Constitutional: Yes: Well Nourished, No Distress ....Post : Yes: Uterus firm, Uterus non-tender Musculoskeletal: Yes: WNL Extremities: Yes: WNL Edema: No Labs: CBC, BMP 08/08/19 08:13 08/07/19 14:07 Delivery - Delivery Section: Repeat, Low Flap Transverse Type of Anesthesia: Spinal EBL (cc): 500 Delivery, Single - Stages of Labor Date 1st Stage Initiatied: 08/07/19 Time 1st Stage Initiated: 02:00 Date of Delivery: 08/07/19 Time of Delivery: 18:07 Time Placenta Delivered: 18:08 Placenta: Yes: Manual Removal - Condition of Infant Molecular Spectroscopist/Lithographic Plate Maker Apprentice Present: Yes Name: Eva Romo Infant Gender: Female Weight: 7 lb 5 oz Total Hours ROM (Hrs/Mins): 1 minute - 1 Minute Total Score: 8 5 Minutes Total Score: 9 - Feeding Plan Initial Plan: Exclusive throughout hospitalization Discharge Summary Problems reviewed: Yes Reason For Visit: ADMISSION Current Active Problems Previous delivery affecting , antepartum (Acute) Status post repeat low transverse section (Acute) Procedures: Principal: Repeat Section Other Procedures: Bilateral Salpingectomy Hospital Course: Unremarkable Condition: Good - Instructions Diet, Activity, Other Instructions: Physical activity Resume your normal everyday activity as tolerated no heavy lifting or exercise until seen by your surgeon. You may walk unlimited dewayne of and climb stairs. You may resume driving the car when you feel safe and comfortable behind the wheel. No sexual activity as instructed. Wound care If you have a bandage, leave it on, and keep dry for 48-72 hours. After that time discard the outer bandage. If they are tapes on the skin under the out of bandage leave them in place. They will peel off in the next 7 to 10 days. Do Not Peel them off. You may shower the day after surgery. If there are tapes present on the skin, you may shower over them. Diet There are no dietary restrictions. Eat healthy, high-fiber foods. Drink 6 to 8 glasses of liquid each day. This will assist in keeping your bowels are regular. Pain management You may take Tylenol or acetaminophen or Ibuprofen (for example, Motrin, Advil etc.) from my pain prescription medication is ordered should be taken as prescribed for moderate to severe pain. Call MD for any of the following: Severe pain not relieved by medication Fever of 101 or higher Excessive bleeding or drainage on dressing Inability to urinate Referrals: Amanda Easley MD [Staff Physician] - Disposition: HOME - Home Medications Comprehensive Discharge Medication List: Ambulatory Orders Pnv 29-1 Tablet 1 tab PO DAILY 05/12/19 Ibuprofen [Motrin -] 600 mg PO QID #28 tablet 08/07/19
[2019-08-10 07:45] VITALS: BP 109/60; PULSE 78; TEMP 97.8
[2019-08-10 08:07] LABS: BASO % 0.5 % (0-2.0); EOS % 1.1 % (0-4.5); HEMOGLOBIN 12.3 GM/dL (10.7-15.3); LYMPH % 19.5 % (8-40); MCH 31.7 pg (25.7-33.7); MCHC 34.3 g/dl (32.0-36.0); MEAN CELL VOLUME 92.3 fl (80-96); MEAN PLT VOLUME 8.8 fl (7.5-11.1); MONO % 6.1 % (3.8-10.2); NEUT % 72.8 % (42.8-82.8); PLATELET COUNT 249 K/MM3 (134-434); RDW 14.4 % (11.6-15.6); WHITE BLOOD COUNT 10.9 K/mm3 (4.0-10.0)
[2019-08-10] MEDS ORDERED: ACETAMINOPHEN 325 MG TABLET (FP) ONE (09:04)
[2019-08-10] MEDS: ACETAMINOPHEN 325 MG TABLET (FP) PO PRN ×2 (09:10→13:15)
--- NOTE | 2019-08-13 15:27 | PATH ---
Surgical Pathology Report Patient Name: REGINALD LOPEZ [facility]. Rec. #: [id number] /Age/Gender: 1985 (Age: 33) / F Account: [id number] Location: [facility] OBS/INJECTION MOLD TECHNICIAN Taken: 08/07/2019 Received: 08/08/2019 Reported: 08/13/2019 Physicians: Amanda Easley M.D. 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 PLACENTA, SECTION: 427 G THIRD TRIMESTER PLACENTA WITH TRIVASCULAR UMBILICAL CORD, UNREMARKABLE PLACENTAL MEMBRANES, AND FOCAL INTRAPARENCHYMAL HEMORRHAGE (< 20% OF PLACENTAL SURFACE). B. FALLOPIAN TUBE, RIGHT, SALPINGECTOMY: FALLOPIAN TUBE WITH PARATUBAL CYST (INCLUDING FIMBRIATED END AND FULL LUMINAL PORTION). C. FALLOPIAN TUBE, LEFT, SALPINGECTOMY: FALLOPIAN TUBE WITH PARATUBAL CYST AND FOCAL DECIDUAL REACTION (INCLUDING FIMBRIATED END AND FULL LUMINAL PORTION). Electronically Signed Zunilda Sebastian M.D. Gross Description A. The specimen is received fresh labeled placenta and is a 427 gram, 18.5 x 17.5 x 2.3 cm. placenta with attached membranes and umbilical cord. The attached membranes are ibarra, translucent with focal opacities and insert marginally. The umbilical cord measures 8 cm. in length and averages 0.8 cm. in diameter. The cord inserts centrally. No true knots or strictures are identified. Cut surface of the umbilical cord reveals 3 vessels. The surface is gar-blue with minimal fibrin deposition and appropriate caliber vessels. The maternal surface is red-brown with focal defects. Sectioning reveals 2 intraparenchymal lesions measuring 1.6 and 1.8 cm in greatest dimension. The remaining placental parenchyma is red-brown and spongy. Cloth Washer sections are submitted in 4 cassettes as follows: 1-membrane roll and umbilical cord; 2-3-lesions; 3-mavb-afykainkn section of placenta. B. Received in formalin labeled "fallopian tube right," is a 6.5 cm in length fimbriated fallopian tube. The outer surface is ibarra gar and smooth. Sectioning reveals an unremarkable lumen. Cloth Washer sections are submitted in 2 cassettes as follows: 1-fimbria; 2-cross sections of fallopian tube. C. Received in formalin labeled "fallopian tube left," is a 5.5 cm in length fimbriated fallopian tube. The outer surface is gar purple and smooth. Sectioning reveals an unremarkable lumen. Cloth Washer sections are submitted in 2 cassettes as follows: 1-fimbria; 2-cross sections of fallopian tube. 08/12/[address] [facility]08/12/2019
== END 2019-08-10 14:45 | disposition home or self-care (01) | DRG 540 ==
LOC: JDEL 11:30 → JLDR 14:05 → J3W 21:30
PROVIDERS: ADMIT Obstetrics & Gynecology; ATTEND Obstetrics & Gynecology
PROC: 10D00Z1 Extraction of Products of Conception, Low, Open Approach (ICD-10-PCS; principal; 2019-08-07)
PROC: 0UB70ZZ Excision of Bilateral Fallopian Tubes, Open Approach (ICD-10-PCS; 2019-08-07)
DX: O34.219 Maternal care for unspecified type scar from previous cesarean delivery (principal); O69.81X0 Labor and delivery complicated by cord around neck, without compression, not applicable or unspecified; Z3A.37 37 weeks gestation of pregnancy; Z37.0 Single live birth; Z30.2 Encounter for sterilization
CPT/HCPCS: 36415; 36600; 71046-TC-FY; 80048; 82803; 85025; 85610; 85730; 86593; 86850; 86900; 86901; 87340; 88302-TC; 88307-TC; J0131

== ENCOUNTER 2019-09-13 21:20 | Emergency (ER) | payer OTHER ==
--- NOTE | 2019-09-13 21:24 | PDOC ---
Rapid Medical Evaluation Time Seen by Provider: 09/13/19 21:22 Medical Evaluation: Allergies Allergy/AdvReac Type Severity Reaction Status Date / Time No Known Allergies Allergy Verified 08/07/19 12:23 09/13/19 21:23 HPI: Incision pain from , pain started today; 1 month ago PE: Ambulates no gross deficits ORDERS: Nothing Discharge Disposition - Diagnosis Visit for wound check - Referrals - Patient Instructions - Post Discharge Activity
[2019-09-13 21:26] VITALS: TEMP 98.8; BMI 13.4
[2019-09-13] MEDS ORDERED: LACTATED RINGERS SOLUTION 1000 ML INFUS.BAG IV ONE (22:32)
--- NOTE | 2019-09-13 22:33 | PDOC ---
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 # [id number]) Exam Limitations: Language Barrier Past History - Past Medical History Allergies/Adverse Reactions: Allergies Allergy/AdvReac Type Severity Reaction Status Date / Time No Known Allergies Allergy Verified 09/13/19 21:26 Home Medications: Ambulatory Orders Pnv 29-1 Tablet 1 tab PO DAILY 05/12/19 Ibuprofen [Motrin -] 600 mg PO QID #28 tablet 08/07/19 Asthma: No Cancer: No Cardiac Disorders: No COPD: No Diabetes: No HTN: No Seizures: No Thyroid Disease: No - Immunization History Immunization Up to Date: Yes - Psycho Social/Smoking Cessation Hx Smoking Status: No Smoking History: Never smoked Have you smoked in the past 12 months: No Number of Cigarettes Smoked Daily: 0 Hx Alcohol Use: No Drug/Substance Use Hx: No Substance Use Type: None Hx Substance Use Treatment: No *Physical Exam - Vital Signs Last Vital Signs Temp Pulse Resp BP Pulse Ox 37.1 C 64 18 104/50 L 98 09/13/19 21:23 09/13/19 21:23 09/13/19 21:23 09/13/19 21:23 09/13/19 21:23 ED Treatment Course - LABORATORY CBC & Chemistry Diagram: 09/13/19 22:51 09/13/19 22:51 - RADIOLOGY Radiology Studies Ordered: Category Date Time Status ABDOMEN & PELVIS CT WITH CONTR [CT] Stat CT Scan 09/13/19 22:28 Ordered Radiograph Interpretation: CTAP and CT Lumbar Spine: THIS IS A PRELIMINARY REPORT FROM IMAGING PRICING DIRECTOR DATE OF SERVICE: 2019-09-14 00:28:26 IMAGES: [id number] EXAM: CT abdomen and pelvis with contrast and CT lumbar spine with contrast HISTORY: Right lower quadrant and left lower quadrant pain. Midline lumbar tenderness COMPARISON February 07, 2017 FINDINGS Abdomen and pelvis: There is no bowel obstruction or inflammation. Negative for diverticulitis or colitis. Normal appendix. Normal kidneys urinary tracts and urinary bladder. The uterus is enlarged and bulky with masses, some calcified and some noncalcified. These most likely represent fibroids. These findings were present on the February 07, 2017 scan. However, there is enlargement of the left adnexa (uncertain if this is pedunculated fibroid adnexa or ovary) with heterogeneous enhancement versus calcification. Similar findings in the right adnexa/ovary. Ultrasound is recommended to differentiate between pedunculated fibroids; adnexal mass; or acute ovarian pathology such as torsion. Normal liver. No obvious gallbladder abnormalities. Normal spleen. Normal pancreas. Normal adrenal glands. Normal kidneys urinary tracts and urinary bladder. Osseous structures are intact. Lumbar spine: The lumbar vertebrae are normally aligned. No fracture or destructive bone lesion. No obvious disc abnormalities but disc disease as well as canal/cord disease is best evaluated on MRI. No stenosis of the lumbar canal. One or more of the following dose reduction techniques were used: automated exposure control, adjustment of the mA and/or kV according to patient size, use of iterative reconstructive technique. THIS DOCUMENT HAS BEEN ELECTRONICALLY SIGNED Jose Alfredo Sandhu MD 09/14/2019 02:56 EST TVUS: THIS IS A PRELIMINARY REPORT FROM IMAGING PRICING DIRECTOR DATE OF SERVICE: 2019-09-14 03:49:20 IMAGES: [id number] EXAM: TRANSVAGINAL ULTRASOUND US HISTORY: Pelvic pain COMPARISON: None. FINDINGS:There was satisfactory sonographic imaging of the pelvic structures. Transabdominal and transvaginal examination was done The uterus is unremarkable [id number] x 5.4 x 8.3cm. The uterus is heterogeneous. Several fibroids are seen including a calcified fibroid on the right side measuring 2.8 x 2.2 x 2.7 cm. A left-sided fibroid is seen measuring 3.6 x 2.5 x 3.8 cm. The endometrium is mildly thickened measuring up to 1.0 cm. There is trace free fluid in the endometrium. The right ovary measures 3.3 x 2.0 x 2.9 cm. Follicles are seen in both ovaries. There is no ovarian mass either solid or cystic. The left ovary measures 4.1 x 2.1 x 2.4cm. There is no ovarian mass either solid or cystic. There is minimal free fluid in the pelvis. Ovarian Doppler evaluation Duplex sonography of both ovaries was performed. There was satisfactory arterial and venous blood flow demonstrated in both ovaries. There is no evidence of torsion. IMPRESSION: 1. Fibroid uterus. Minimal free fluid is seen in the pelvis. 2. Small amount of fluid is seen in the endometrium but no retained products of conception are identified. 3. There is no evidence of ovarian torsion. THIS DOCUMENT HAS BEEN ELECTRONICALLY SIGNED Andressa Conte MD 09/14/2019 05:20 EST Discharge - Discharge Information Problems reviewed: Yes Clinical Impression/Diagnosis: Lower abdominal pain Uterine fibroid Qualifiers: Uterine leiomyoma location: unspecified location Qualified Code(s): D25.9 - Leiomyoma of uterus, unspecified Condition: Improved Disposition: HOME - Admission No - Follow up/Referral Referrals: Amanda Easley MD [Primary Care Provider] - - Patient Discharge Instructions Patient Printed Discharge Instructions: DI for Abdominal Pain-Adult, DI for Uterine Fibroids Additional Instructions: Usted fue visto hoy por dolor en la parte baja del abdomen que se movi a renee espalda. Tus laboratorios sandee normales. Renee tomografa computarizada y ultrasonido mostraron que tiene fibromas en el tero. Esta es probablemente la ashok de renee dolor. Puede parth el contador Tylenol o Advil segn sea necesario para el dolor. Tmelo jaden se indica en el prospecto. No exceda la dosis recomendada. Shirley un seguimiento con rneee mdico OBGYN en los prximos 3-4 car. Deber llamar para hacer horace nivia. El nmero est incluido en amanda paquete. Se adjunta horace copia de los resultados de hoy a amanda paquete. Llvelo a la nivia para que renee mdico pueda revisarlos. Dirjase al departamento de emergencias ms cercano si renee condicin empeora o siente que necesita horace evaluacin de emergencia adicional. Est atento al empeoramiento del dolor en la parte baja del abdomen, vmitos persistentes, fiebre jeremiah o signos de deshidratacin. You were seen today for lower abdominal pain that moved to your back. Your labs were normal. Your CT scan and ultrasound showed you have fibroids in your uterus. This is likely the source of your pain. You can take over the counter Tylenol or Advil as needed for pain. Take as directed on the package insert. Do not exceed the recommended dosage. Follow up with your OBGYN doctor in the next 3-4 days. You will need to call to make an appointment. The number is included in this packet. A copy of todays results are attached to this packet. Take it to the appointment so your doctor can review them. Go to the nearest emergency department if your condition worsens or you feel like you need additional emergency evaluation. Watch for worsening lower abdominal pain, persistent vomiting, high fevers, or signs of dehydration. Print Language: CYPRIOT - Post Discharge Activity Work/Back to School Note: Back to Work
[2019-09-13] MEDS ORDERED: ACETAMINOPHEN 1000 MG/100 ML VIAL (NON FORMULARY) IVPB ONE (23:01)
[2019-09-13 23:09] LABS: BASO % 0.8 % (0-2.0); EOS % 1.7 % (0-4.5); HEMATOCRIT 41.3 % (32.4-45.2); HEMOGLOBIN 13.5 GM/dL (10.7-15.3); LYMPH % 33.3 % (8-40); MCH 30.6 pg (25.7-33.7); MCHC 32.7 g/dl (32.0-36.0); MEAN CELL VOLUME 93.3 fl (80-96); MEAN PLT VOLUME 8.7 fl (7.5-11.1); MONO % 6.6 % (3.8-10.2); NEUT % 57.6 % (42.8-82.8); PLATELET COUNT 294 K/MM3 (134-434); RBC 4.42 M/mm3 (3.60-5.2); RDW 13.2 % (11.6-15.6); WHITE BLOOD COUNT 9.9 K/mm3 (4.0-10.0)
[2019-09-13] MEDS ORDERED: ACETAMINOPHEN INJECTION 100 ML IVPB ONE (23:15)
[2019-09-13 23:37] LABS: ALBUMIN 3.7 g/dl (3.4-5.0); BILIRUBIN,TOTAL 0.3 mg/dL (0.2-1); BLOOD UREA NITROGEN 12.8 mg/dL (7-18); CALCIUM 9.8 mg/dL (8.5-10.1); CREATININE 0.7 mg/dL (0.55-1.3); POTASSIUM 4.1 mmol/L (3.5-5.1); TOT PROT 7.4 g/dl (6.4-8.2)
[2019-09-13 23:47] LABS: EPI CELLS 5.9 /HPF (0-5/HPF); HYALINE CASTS 4 /lpf (0-8); URINE APPEARANCE CLEAR; URINE BACTERIA 84.7 /hpf (NEGATIVE); URINE BILIRUBIN NEGATIVE (NEGATIVE); URINE COLOR YELLOW; URINE GLUCOSE (UA) NEGATIVE (NEGATIVE); URINE KETONE NEGATIVE (NEGATIVE); URINE LEUK ESTERASE TRACE (NEGATIVE); URINE NITRITE NEGATIVE (NEGATIVE); URINE PROTEIN NEGATIVE (NEGATIVE); URINE RBC 1 /hpf (0-4); URINE UROBILINOGEN 0.2 mg/dL (0.2-1.0); URINE WBC 7 /hpf (0-5)
--- NOTE | 2019-09-14 02:40 | PDOC ---
Attending Attestation - Resident Resident Name: Chris Mijares - ED Attending Attestation I have performed the following: I have examined & evaluated the patient, The case was reviewed & discussed with the resident, I agree w/resident's findings & plan - HPI HPI: 09/14/19 02:39 Pt had a her 3rd baby via a few weeks back. Now with diffuse abdominal pain. Worse on the left side. Pt states that she has a hx of fibroid uterus. She has never had any medical issues with her ovaries. She has no fevers and no chills and she has no dysuria. - Physicial Exam PE: 09/14/19 02:49 No fever VSS Heart RRR Lungs clear Abd diffuse mild tenderness; left sided mild rebound No flank pain Pt has no rashes and her c section scar looks normal. - Medical Decision Making 09/14/19 05:07 Patient Name: REGINALD LOPEZ THIS IS A PRELIMINARY REPORT FROM IMAGING MIXER OPERATOR [facility] DATE OF SERVICE: 2019-09-14 00:28:26 IMAGES: [id number] EXAM: CT abdomen and pelvis with contrast and CT lumbar spine with contrast HISTORY: Right lower quadrant and left lower quadrant pain. Midline lumbar tenderness COMPARISON February 07, 2017 FINDINGS Abdomen and pelvis: There is no bowel obstruction or inflammation. Negative for diverticulitis or colitis. Normal appendix. Normal kidneys urinary tracts and urinary bladder. The uterus is enlarged and bulky with masses, some calcified and some noncalcified. These most likely represent fibroids. These findings were present on the February 07, 2017 scan. However, there is enlargement of the left adnexa (uncertain if this is pedunculated fibroid adnexa or ovary) with heterogeneous enhancement versus calcification. Similar findings in the right adnexa/ovary. Ultrasound is recommended to differentiate between pedunculated fibroids; adnexal mass; or acute ovarian pathology such as torsion. Normal liver. No obvious gallbladder abnormalities. Normal spleen. Normal pancreas. Normal adrenal glands. Normal kidneys urinary tracts and urinary bladder. Osseous structures are intact. Lumbar spine: The lumbar vertebrae are normally aligned. No fracture or destructive bone lesion. No obvious disc abnormalities but disc disease as well as canal/cord disease is best evaluated on MRI. No stenosis of the lumbar canal. 09/14/19 05:39 Patient Name: REGINALD LOPEZ THIS IS A PRELIMINARY REPORT FROM IMAGING MIXER OPERATOR [facility] DATE OF SERVICE: 2019-09-14 03:49:20 IMAGES: [id number] EXAM: TRANSVAGINAL ULTRASOUND US HISTORY: Pelvic pain COMPARISON: None. FINDINGS:There was satisfactory sonographic imaging of the pelvic structures. Transabdominal and transvaginal examination was done The uterus is unremarkable .1 x 5.4 x 8.3cm. The uterus is heterogeneous. Several fibroids are seen including a calcified fibroid on the right side measuring 2.8 x 2.2 x 2.7 cm. A left-sided fibroid is seen measuring 3.6 x 2.5 x 3.8 cm. The endometrium is mildly thickened measuring up to 1.0 cm. There is trace free fluid in the endometrium. The right ovary measures 3.3 x 2.0 x 2.9 cm. Follicles are seen in both ovaries. There is no ovarian mass either solid or cystic. The left ovary measures 4.1 x 2.1 x 2.4cm. There is no ovarian mass either solid or cystic. There is minimal free fluid in the pelvis. Ovarian Doppler evaluation Duplex sonography of both ovaries was performed. There was satisfactory arterial and venous blood flow demonstrated in both ovaries. There is no evidence of torsion. IMPRESSION: 1. Fibroid uterus. Minimal free fluid is seen in the pelvis. 2. Small amount of fluid is seen in the endometrium but no retained products of conception are identified. 3. There is no evidence of ovarian torsion. 09/14/19 05:40 Impression: Fibroid uterus and gas pain
[2019-09-14 03:46] VITALS: BP 109/54; PULSE 92
== END 2019-09-14 06:03 | disposition home or self-care (01) ==
LOC: JER 21:20
DX: O90.89 Other complications of the puerperium, not elsewhere classified (principal); D25.9 Leiomyoma of uterus, unspecified; Z98.890 Other specified postprocedural states
CPT/HCPCS: 36415; 72131-TC; 74177-TC; 76830-TC; 80053; 81003; 83690; 84703; 85025; 87086; 99282-25; J0131; Q9967

== ENCOUNTER 2021-09-02 18:01 | Emergency (ER) | payer OTHER ==
[2021-09-02 18:16] VITALS: BP 116/71; PULSE 73; TEMP 98.4; BMI 27.4
== END 2021-09-02 19:42 | disposition home or self-care (01) ==
LOC: JER 18:01
DX: B34.9 Viral infection, unspecified (principal)
CPT/HCPCS: 99283-25

== ENCOUNTER 2023-06-19 12:57 | Emergency (ER) | payer OTHER ==
[2023-06-19 13:27] VITALS: BP 98/64; PULSE 76; RESP 18; TEMP 98.1; BMI 26.0
[2023-06-19 16:42] LABS: HEMATOCRIT 44.1 % (32.4-45.2); HEMOGLOBIN 15.2 GM/dL (10.7-15.3); MCH 31.9 pg (25.7-33.7); MCHC 34.4 g/dl (32.0-36.0); MEAN CELL VOLUME 92.9 fl (80-96); MEAN PLT VOLUME 8.1 fl (7.5-11.1); PLATELET COUNT 317 10^3/uL (134-434); RBC 4.75 M/mm3 (3.60-5.2); WHITE BLOOD COUNT 10.6 K/mm3 (4.0-10.0)
[2023-06-19 16:55] LABS: ALBUMIN 4.3 g/dl (3.4-5.0)
[2023-06-19 16:56] LABS: BLOOD UREA NITROGEN 15.1 mg/dL (7-18)
[2023-06-19 16:58] LABS: CREATININE 0.7 mg/dL (0.55-1.3)
[2023-06-19 17:01] LABS: BILIRUBIN,TOTAL 0.3 mg/dL (0.2-1); TOT PROT 8.4 g/dl (6.4-8.2)
== END 2023-06-19 18:07 | disposition home or self-care (01) ==
LOC: JER 12:57
DX: R07.9 Chest pain, unspecified (principal); M79.602 Pain in left arm; R68.84 Jaw pain; K08.89 Other specified disorders of teeth and supporting structures; R51.9 Headache, unspecified
CPT/HCPCS: 36415; 71046-TC-FY; 80053; 84484; 84703; 85027; 93005; 93010; 99285-25